=== PATIENT | male | born 1975 | race Caucasian/White ===

== ENCOUNTER 2022-01-23 09:00 | Emergency (ER) | payer BC ==
--- NOTE | 2022-01-23 10:39 | RAD REPORT ---
EXAM DESCRIPTION: RAD - Foot Right 3 View - 01/23/2022 10:32 am CLINICAL HISTORY: SWELLING COMPARISON: No comparisons FINDINGS: Soft tissue swelling affects the great toe. No fracture or foreign body. Small calcaneal s purs. No radiographic evidence of osteomyelitis.
[2022-01-23 10:53] LABS: Absolute Lymphocytes (CBC) 1.7 K/uL (0.7-4.9); Hematocrit 51.5 % (39.6-49.0); Lymphocytes % 13.8 % (15.3-44.8); MCV 93.3 fL (80-100); MPV 7.1 fL (7.6-11.3); RBC Red Blood Cell Count 5.52 M/uL (4.33-5.43)
[2022-01-23 11:12] LABS: Albumin 3.9 g/dL (3.4-5.0); Bilirubin Total 1.4 mg/dL (0.2-1.0); Potassium 4.4 mmol/L (3.5-5.1); Protein, Total 8.3 g/dL (6.4-8.2)
--- NOTE | 2022-01-23 11:29 | RAD REPORT ---
EXAM DESCRIPTION: US - Extremity Venous Uni Ltd - 01/23/2022 11:21 am CLINICAL HISTORY: SWELLING Leg swelling and edema. COMPARISON: No comparisons FINDINGS: Right lower extremity venous system was interrogated with Doppler technique. Normal flow, compressibility and augmentation was noted. There is no DVT present. IMPRESSION: No evidence of right lower extremity deep venous thrombosis.
[2022-01-23] MEDS ORDERED: CLINDAMYCIN 900MG/D5W 900 MG/50 ML IVPB IV ONE (12:54)
[2022-01-23] MEDS ORDERED: DOXYCYCLINE 100 MG CAP PO ONE (12:55)
--- NOTE | 2022-01-23 13:03 | EDPHYS ---
Physician Documentation [facility] Name: Diallo Diez Age: 47 yrs Sex: Male : 1975 Arrival Date: 01/23/2022 Time: 09:02 Bed 15 Private MD: Josue Trevino E ED Physician Heath Caballero HPI: 01/23 09:38 This 47 yrs old Male presents to ER via Ambulatory with complaints of Feet Swelling. jmm 09:38 The patient presents with pain, that is acute, swelling. Onset: The symptoms/episode jmm began/occurred gradually, 2 week(s) ago. Modifying factors: The symptoms are alleviated by nothing. the symptoms are aggravated by nothing. Associated signs and symptoms: Pertinent positives: calf tenderness, swelling. This is a 47 year old male with no chronic medical conditions that presents to the ED with complaints of left foot pain which radiates into the left calf. Denies fever, chills. . Historical: - Allergies: 09:35 PENICILLINS; ss - Home Meds: 09:35 None [Active]; ss - PMHx: 09:35 None; ss - PSHx: 09:35 R knee repair; L tibia repair; ss - Immunization history:: Client reports having NOT received the Covid vaccine. - Social history:: Smoking status: Patient reports the use of cigarette tobacco products, smokes two packs cigarettes per day. ROS: 09:38 Constitutional: Negative for fever, chills, and weight loss, Cardiovascular: Negative jmm for chest pain, palpitations, and edema, Respiratory: Negative for shortness of breath, cough, wheezing, and pleuritic chest pain. 09:38 MS/extremity: Positive for pain, swelling. 09:38 All other systems are negative. Exam: 09:38 Constitutional: This is a well developed, well nourished patient who is awake, alert, jmm and in no acute distress. Head/Face: atraumatic. Eyes: EOMI, no conjunctival erythema appreciated ENT: Moist Mucus Membranes Neck: Trachea midline, Supple Chest/axilla: Normal chest wall appearance and motion. Cardiovascular: Regular rate and rhythm. No edema appreciated Respiratory: Normal respirations, no respiratory distress appreciated Abdomen/GI: Non distended Back: Normal ROM 09:38 Musculoskeletal/extremity: edema noted to the left lower extremity, full dorsalis pulse, compartments soft, NVI. 09:38 Skin: erythema and induration noted to the left great toe . 09:38 Neuro: Orientation: is normal, Mentation: is normal, Memory: is normal. 09:38 Psych: Behavior/mood is pleasant, cooperative. Vital Signs: 09:30 Pulse 85; Resp 16; Temp 98.1(TE); Pulse Ox 97% on R/A; Weight 136.08 kg; Height 6 ft. 6 ss in. (198.12 cm); Pain 0/10; 09:36 BP 158 / 97; ss 11:28 BP 158 / 97; Pulse 100; Resp 18; Pulse Ox 97% on R/A; tm3 09:30 Body Mass Index 34.67 (136.08 kg, 198.12 cm) ss MDM: 09:38 Patient medically screened. [facility] 13:01 Data reviewed: vital signs, nurses notes. [facility] 13:01 Counseling: I had a detailed discussion with the patient and/or guardian regarding: the [facility] historical points, exam findings, and any diagnostic results supporting the discharge/admit diagnosis, the need for outpatient follow up, to return to the emergency department if symptoms worsen or persist or if there are any questions or concerns that arise at home. ED course: Patient is alert and non toxic in appearance in the ED. Patient advised to follow up with pcp and otherwise given strict return precautions. patient understood and agrees with the plan of care. . 01/23 09:59 Order name: CBC with Diff; Complete Time: 10:54 [facility] 01/23 09:59 Order name: CMP; Complete Time: 11:14 [facility] 01/23 09:59 Order name: Lipase; Complete Time: 11:14 [facility] 01/23 09:59 Order name: Lactate; Complete Time: 11:38 [facility] 01/23 09:59 Order name: Blood Culture Adult (2) [facility] 01/23 10:00 Order name: US Extremity Venous Unilateral Ltd; Complete Time: 11:30 [facility] 01/23 09:59 Order name: IV Saline Lock; Complete Time: 11:05 [facility] 01/23 09:59 Order name: Labs collected and sent; Complete Time: 11:05 [facility] 01/23 10:00 Order name: Foot Right 3 View XRAY; Complete Time: 10:51 [facility] Administered Medications: 12:54 Drug: Clindamycin 900 mg Route: IVPB; Infused Over: 30 mins; Site: right antecubital; hb 12:54 Drug: Doxycycline 100 mg Route: PO; hb Disposition Summary: 01/23/22 13:03 Discharge Ordered Location: Home [facility] Condition: Stable [facility] Diagnosis - Cellulitis of the Left Lower Extremity jm Followup: jmm - With: Private Physician - When: 2 - 3 days - Reason: Recheck today's complaints, Continuance of care, Re-evaluation by your physician Followup: marianelam - With: Mamadou Millan DPM - When: 2 - 3 days - Reason: Recheck today's complaints, Continuance of care, Re-evaluation by your physician Discharge Instructions: - Discharge Summary Sheet [facility] - Cellulitis, Adult [facility] Forms: - Medication Reconciliation Form [facility] - Thank You Letter [facility] - Antibiotic Education [facility] - Prescription Opioid Use [facility] Prescriptions: - Clindamycin HCl 300 mg Oral Capsule - take 1 capsule by ORAL route every 6 hours for 10 days; 40 capsule; Refills: 0, [facility] Product Selection Permitted - Doxycycline Hyclate 100 mg Oral Tablet - take 1 tablet by ORAL route every 12 hours; 20 tablet; Refills: 0, Product [facility] Selection Permitted Signatures: Dispatcher [employer] Heath Mendoza MD MD cha Mickail, Joel, PA PA jmm Smirch, Shelby, BARBARA RN Sejal Butts RN RN
--- NOTE | 2022-01-23 13:03 | ER ---
Nurse's Notes [facility] Name: Diallo Diez Age: 47 yrs Sex: Male : 1975 Arrival Date: 01/23/2022 Time: 09:02 Bed 15 Private MD: Josue Trevino E Diagnosis: Cellulitis of the Left Lower Extremity Presentation: 01/23 09:30 Chief complaint: Patient states: Wound to bottom of foot that began 2 weeks ago after ss picking at a callus. Redness and swelling that began yesterday. Coronavirus screen: Client denies travel out of the [place] in the last 14 days. Ebola Screen: Patient denies exposure to infectious person. Patient denies travel to an Ebola-affected area in the 21 days before illness onset. Initial Sepsis Screen: Does the patient meet any 2 criteria? No. Patient's initial sepsis screen is negative. Does the patient have a suspected source of infection? No. Patient's initial sepsis screen is negative. Risk Assessment: Do you want to hurt yourself or someone else? Patient reports no desire to harm self or others. Onset of symptoms was January 22, 2022. 09:30 Method Of Arrival: Ambulatory ss 09:30 Acuity: LONNY 3 ss Historical: - Allergies: 09:35 PENICILLINS; ss - Home Meds: 09:35 None [Active]; ss - PMHx: 09:35 None; ss - PSHx: 09:35 R knee repair; L tibia repair; ss - Immunization history:: Client reports having NOT received the Covid vaccine. - Social history:: Smoking status: Patient reports the use of cigarette tobacco products, smokes two packs cigarettes per day. Screenin:06 Abuse screen: Denies threats or abuse. Denies injuries from another. Nutritional hb screening: No deficits noted. Tuberculosis screening: No symptoms or risk factors identified. Fall Risk None identified. Assessment: 12:05 General: Appears in no apparent distress. Behavior is calm, cooperative. Neuro: Level hb of Consciousness is awake, alert, obeys commands, Oriented to person, place, time, situation. Cardiovascular: Patient's skin is warm and dry. Respiratory: Respiratory effort is even, unlabored, Respiratory pattern is regular, symmetrical. GI: No signs and/or symptoms were reported involving the gastrointestinal system. : No signs and/or symptoms were reported regarding the genitourinary system. EENT: No signs and/or symptoms were reported regarding the EENT system. Derm: Parent/caregiver reports the patient having left foot abscess. Musculoskeletal: No signs and/or symptoms reported regarding the musculoskeletal system. Vital Signs: 09:30 Pulse 85; Resp 16; Temp 98.1(TE); Pulse Ox 97% on R/A; Weight 136.08 kg; Height 6 ft. 6 ss in. (198.12 cm); Pain 0/10; 09:36 BP 158 / 97; ss 11:28 BP 158 / 97; Pulse 100; Resp 18; Pulse Ox 97% on R/A; tm3 09:30 Body Mass Index 34.67 (136.08 kg, 198.12 cm) ss ED Course: 09:02 Patient arrived in ED. mr 09:02 Josue Trevino MD is Private Physician. mr 09:06 [facility] jmm 09:06 Heath Caballero MD is Attending Physician. jmm 09:35 Triage completed. ss 09:35 Arm band placed on right wrist. ss 10:34 Foot Right 3 View XRAY In Process Unspecified. EDMS 10:38 Inserted saline lock: 20 gauge in right antecubital area, using aseptic technique. tm3 10:38 Initial lab(s) drawn, by nj, sent to lab. tm3 10:55 First set of blood cultures drawn by me. tm3 11:00 Second set of blood cultures drawn by me. Inserted saline lock: 20 gauge in left dh3 forearm, using aseptic technique. Blood collected. 11:23 US Extremity Venous Unilateral Ltd In Process Unspecified. EDMS 12:04 Sejal Butts, RN is Primary Nurse. hb 12:06 Patient has correct armband on for positive identification. hb 13:03 Mamadou Millan DPM is Referral Physician. jmm 13:29 No provider procedures requiring assistance completed. IV discontinued, intact, hb bleeding controlled, No redness/swelling at site. Administered Medications: 12:54 Drug: Clindamycin 900 mg Route: IVPB; Infused Over: 30 mins; Site: right antecubital; hb 12:54 Drug: Doxycycline 100 mg Route: PO; hb Medication: 12:06 VIS not applicable for this client. hb Outcome: 13:03 Discharge ordered by MD. waite 13:29 Discharged to home ambulatory, with significant other. 13:29 Condition: stable 13:29 Discharge instructions given to patient, significant other, Instructed on discharge instructions, follow up and referral plans. medication usage, wound care, Demonstrated understanding of instructions, follow-up care, medications, wound care, Prescriptions given X 2. 13:30 Patient left the ED. Signatures: Dispatcher [employer] EDMS Daljit Barker tm3 Wil Morton PA PA jmm Rivera, Mary mr Charity Joseph, RN RN Sejal Alonzo RN RN Jv, Marce 3
[2022-01-23 14:06] VITALS: TEMP 98.1; O2SAT 97
[2022-01-23 14:08] VITALS: BP 158/97
== END 2022-01-23 13:30 | disposition home or self-care (01) ==
LOC: ER 09:00
DX: L03.116 Cellulitis of left lower limb (principal); F17.210 Nicotine dependence, cigarettes, uncomplicated; Z88.0 Allergy status to penicillin
CPT/HCPCS: 36415; 80053; 83605; 83690; 85025; 87040; 93971; 96374; 99284

== ENCOUNTER 2022-02-13 16:34 | Inpatient (IN) | payer BC ==
[2022-02-13 16:45] VITALS: BMI 34.7
[2022-02-13] MEDS ORDERED: ONDANSETRON 4 MG/2 ML VIAL IV PRN (17:15)
[2022-02-13] MEDS ORDERED: ACETAMINOPHEN 500 MG TAB PO PRN (17:15)
[2022-02-13] MEDS ORDERED: HYDROCODONE/APAP 5/325 MG TAB PO PRN (18:06)
[2022-02-13] MEDS ORDERED: NICOTINE 21 MG/PAT TD PRN (18:06)
--- NOTE | 2022-02-13 18:19 | P.HP ---
Certification for Inpatient Patient admitted to: Inpatient With expected LOS: >2 Midnights Patient will require the following post-hospital care: None Practitioner: I am a practitioner with admitting privileges, knowledge of patient current condition, hospital course, and medical plan of care. Services: Services provided to patient in accordance with Admission requirements found in Title 42 Section 412.3 of the Code of Federal Regulations Patient History Date of Service: 02/13/22 Reason for admission: Osteomyelitis History of Present Illness: 47-year-old male with no significant past medical history presented to outside hospital for complaints of right toe infection, he was seen here in the hospital for similar complaint recently and had completed 10-day course of clindamycin/doxycycline which did seem to help but about 2 days after completing the course antibiotics the erythema and swelling returned. X-ray performed of his right foot showed comminuted fracture of the right distal phalanx with superimposed swelling concerning for infection/osteomyelitis no slightly elevated white blood cell count and glucose level. Patient not a known diabetic he was sent from outside hospital to our facility for further management of suspected osteomyelitis of his right great toe. He was given IV Vanc and PO bactrim at [facility]. 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 - Social History Smoking Status: Heavy Tobacco smoker (>10 cigarettes/day) Counseled patient to stop smoking for: less than 10 minutes Smoking therapy provided: Yes Alcohol use: Yes CD- Drugs: No Caffeine use: Yes Place of Residence: Home Review of Systems 10-point ROS is otherwise unremarkable Musculoskeletal: Foot Pain Integumentary: Rash, As per HPI Physical Examination - Vital Signs Temperature: 97.8 F Blood Pressure: 165/96 Pulse: 82 Respirations: 20 Pulse Ox (%): 96 - Physical Exam General: Alert, In no apparent distress, Oriented x3 HEENT: Atraumatic, PERRLA, Mucous membr. moist/pink, EOMI, Sclerae nonicteric Neck: Supple, 2+ carotid pulse no bruit, No LAD, Without JVD or thyroid abnormality Respiratory: Clear to auscultation bilaterally, Normal air movement Cardiovascular: Regular rate/rhythm, Normal S1 S2 Capillary refill: <2 Seconds Gastrointestinal: Normal bowel sounds, No tenderness Musculoskeletal: No tenderness Integumentary: Tenderness/swelling, Erythema, Warmth Neurological: Normal speech, Normal strength at 5/5 x4 extr, Normal tone, Normal affect Assessment and Plan - Plan Assessment: Osteomyelitis/cellulitis right great toe Hyperglycemia Plan: Osteomyelitis/cellulitis right great toe: Continue broad spectrum abx Vanc/cefepime. Surgery and ID consulted. 06/15 SIRS criteria WBC >12. Hyperglycemia: A1c in the morning, not a known diabetic. SSI if glucose is elevated persistently. DVT PPX: Lovenox Code status:Full code Discharge Plan: Home Plan to discharge in: Greater than 2 days - Advance Directives Does patient have a Living Will: No Does patient have a Durable POA for Healthcare: No - Code Status/Comfort Care Code Status Assessed: Yes (Full code) Critical Care: No Time Spent Managing Pts Care (In Minutes): 70
[2022-02-13] MEDS: INSULIN -REGULAR HUMAN 50 UNIT/0.5 ML ML SQ SCH (19:34)
[2022-02-13] MEDS ORDERED: VANCOMYCIN 1 GM in NA CHLORIDE 0.9% 250 ML IVPB ONE (20:00)
[2022-02-13] MEDS: CEFEPIME 1 GM in NA CHLORIDE 0.9% 100 ML IV SCH (21:22)
--- NOTE | 2022-02-14 00:28 | RAD REPORT ---
EXAM DESCRIPTION: US - Lower Extremity Artery Uni Ltd - 02/14/2022 12:07 am CLINICAL HISTORY: Leg pain COMPARISON: None FINDINGS: The right common femoral, superficial femoral and popliteal arteries demonstrate triphasic waveforms The right posterior tibial and dorsalis pedis arteries demonstrate monophasic waveforms Grayscale, color and spectral analysis performed on all vessels IMPRESSION: Mild distal lower extremity arterial disease
--- NOTE | 2022-02-14 00:29 | RAD REPORT ---
EXAM DESCRIPTION: USExtremity Venous Uni Ltd02/14/2022 12:07 am CLINICAL HISTORY: Right leg pain COMPARISON: January 2022 FINDINGS: Right common femoral, superficial femoral, popliteal and right posterior tibial veins are compressible and demonstrate augmentation. Doppler demonstrates good flow. Grayscale, color and spectral analysis performed on all vessels IMPRESSION: No evidence of deep venous thrombosis involving the right lower extremity.
[2022-02-14 05:54] LABS: Absolute Lymphocytes (CBC) 1.7 K/uL (0.7-4.9); Hematocrit 46.8 % (39.6-49.0); MPV 7.5 fL (7.6-11.3); RBC Red Blood Cell Count 5.03 M/uL (4.33-5.43)
[2022-02-14 06:08] LABS: Albumin 2.9 g/dL (3.4-5.0); Magnesium 2.1 mg/dL (1.8-2.4); Potassium 3.7 mmol/L (3.5-5.1); Protein, Total 6.4 g/dL (6.4-8.2)
[2022-02-14] MEDS: INSULIN -REGULAR HUMAN 50 UNIT/0.5 ML ML SQ SCH ×4 (07:30→21:00)
[2022-02-14] MEDS ORDERED: POTASSIUM CL SA 10 MEQ TAB PO ONE (09:00)
[2022-02-14] MEDS ORDERED: VANCOMYCIN 1 GM in NA CHLORIDE 0.9% 250 ML IVPB SCH (09:00)
[2022-02-14] MEDS: ENOXAPARIN 40 MG/0.4 ML SQ SCH (09:03)
[2022-02-14] MEDS: CEFEPIME 1 GM in NA CHLORIDE 0.9% 100 ML IV SCH ×2 (09:03→20:24)
[2022-02-14] MEDS: VANCOMYCIN 2 GM in NA CHLORIDE 0.9% 500 ML IVPB SCH ×2 (09:03→20:24)
--- NOTE | 2022-02-14 15:54 | CON ---
History Of Present Illness: This is a 47-year-old male, I was consulted for a right foot infection, especially involving the big toe. Patient had a callus and was treated with the oral antibiotic, cli ndamycin and doxycycline. Patient's treatment finished of 10 days and after 2 days he started develo ping swelling and redness to the foot area. Patient denies any diabetes mellitus, but has a strong f amily history of diabetes mellitus. He also smokes 2 pack per day for more than 30 years. Patient c urrently being treated with vancomycin and cefepime. Blood cultures are pending. X-ray from the emergency room showed patient has osteomyelitis of the right big toe. Past Medical History: Right knee arthroscopy and left tibial screws and plates after a skating accid ent. Social History: Tobacco positive of 2 pack per day for 30 years. Alcohol social. Family History: Noncontributory. Medication: Vancomycin and cefepime. See MAR for other medications. Allergies: PENICILLIN CAUSES RASH. Review of Systems: 10-point review was performed. Physical Examination: General: This is a 47-year-old male, lying in bed, not in any acute cardiopulmonary distress. Vital Signs: Temperature 98, pulse 78, respiration 18, blood pressure 169/84. HEENT: Unremarkable. Neck: Supple. Lungs: Clear to auscultation. Heart: S1, S2. Regular. Abdomen: Soft, nontender. Bowel sounds present. Extremities: Right foot big toe osteomyelitis with callus formation and cellulitis. Outpatient anti biotic failure. We will recommend to apply Betadine to the foot wound and keep leg elevated when possible. Continue IV antibiotic for 6 weeks with vancomycin and cefepime. Consider getting PICC line as x-ray is alrea dy showing osteomyelitis. We will hold off on MRI. Plan, off-loading shoes will be recommended for this patient for next 6 weeks. We will follow patient as needed. Thank you, Dr. Lamb, for consult. ARNOL/JURGEN Voice ID: [id number] Report ID: [id number]
--- NOTE | 2022-02-14 15:58 | P.CNS ---
Date of Consult: 02/14/22 PC: This 47-year-old male was seen at another facility where a diagnosis of osteomyelitis of his right great toe was made. He was transferred to our facility. HPC: Patient apparently was seen a few weeks ago. Had a fracture of the great toe. He had been discharged on some antibiotics. He presents now after having pulled off a scabbed area on the bottom, with purulent discharge. And the diagnosis of osteomyelitis. PSHx: Negative PMHx: Diabetes Social Hx: Smokes cigarettes, allergic to penicillin Sys R: No specific complaints, states he is otherwise in relatively good health O/E: Awake alert vital signs are stable HEENT: Not jaundiced Chest: Air entry equal bilaterally Abd: Negative [place]: Right great toe shows area with break in the skin draining some purulent material. Erythema from the distal portion of the toe to almost the metatarsal phalangeal joint. Data: Apparently x-rays demonstrate osteomyelitis on outside read Impression: Osteomyelitis of the right great toe Plan: Patient is not septic, there is minimal drainage out through the incision. He is been seen by infectious disease. The plan is to place a PICC line, and keep him on antibiotics for 4 to 6 weeks. He does not require surgical intervention at this time.
[2022-02-14] MEDS ORDERED: HYDRALAZINE HCL 20 MG/ML VIAL IV PRN (16:01)
--- NOTE | 2022-02-14 16:19 | P.PN ---
Date of Service: 02/14/22 Subjective: No acute events overnight Swelling has decreased Feels redness is slightly brighter today No pain, no fever ROS: 10 point ROS as noted above, otherwise negative Physical exam GEN: Alert, oriented, NAD HEENT: Normal conjunctiva, sclera anicteric CV: Regular rate and rhythm, no edema Pulm: Nonlabored respirations on room air ABD: Soft, nontender, nondistended Integumentary: R 1st toe - erythema, swelling, slight purulent drainage Neuro: Normal speech, normal affect Problem List Osteomyelitis/cellulitis right great toe Hyperglycemia Osteomyelitis/cellulitis right great toe: not septic, doing ok slight purulent drainage at this time culture of drainage and blood cultures obtained at [place], f/u cultures tomorrow continue broad spectrum abx Vanc/cefepime. Surgery and ID consulted - no MRI needed; x-ray with findings concerning for osteomyelitis done at [place] PICC ordered, will need 6 weeks antibiotics Hyperglycemia: A1c: 6.0 Code: full Dispo: home, 1-2 days f/u cultures, PICC line placement Time Spent Managing Pts Care (In Minutes): 35
[2022-02-14] MEDS: lisinopriL 10 MG TAB PO SCH (17:22)
[2022-02-15 06:30] LABS: Potassium 3.8 mmol/L (3.5-5.1)
[2022-02-15] MEDS: INSULIN -REGULAR HUMAN 50 UNIT/0.5 ML ML SQ SCH ×4 (07:30→21:00)
[2022-02-15] MEDS ORDERED: POTASSIUM CL SA 10 MEQ TAB PO ONE (09:00)
[2022-02-15] MEDS: CEFEPIME 1 GM in NA CHLORIDE 0.9% 100 ML IV SCH (09:27)
[2022-02-15] MEDS: ENOXAPARIN 40 MG/0.4 ML SQ SCH (09:27)
[2022-02-15] MEDS: lisinopriL 10 MG TAB PO SCH (09:28)
[2022-02-15] MEDS: VANCOMYCIN 2 GM in NA CHLORIDE 0.9% 500 ML IVPB SCH ×2 (12:28→22:16)
--- NOTE | 2022-02-15 14:38 | P.PN ---
Subjective Date of Service: 02/15/22 Chief Complaint: Osteomyelitis No new complaint. No fever. He states that his pain is well controlled. Physical Examination - Vital Signs Temperature: 97.0 F Blood Pressure: 150/95 Pulse: 73 Respirations: 14 Pulse Ox (%): 93 - Studies Laboratory Data (last 24 hrs) 02/15/22 05:24: Sodium 139, Potassium 3.8, BUN 9, Creatinine 0.69, Glucose 130 H Assessment And Plan - Plan Physical exam GEN: Alert, oriented, NAD HEENT: Normal conjunctiva, sclera anicteric CV: Regular rate and rhythm, no edema Pulm: Nonlabored respirations on room air ABD: Soft, nontender, nondistended Integumentary: Right 1st toe - erythematous, swollen, no discharge. Neuro: No focal motor deficit Problem List Osteomyelitis/cellulitis right great toe Hyperglycemia Strep bacteremia Plan: Blood culture is growing beta-hemolytic strep. Case discussed with infectious disease-Dr. Donald. Discontinue cefepime and continue vancomycin for now. culture of drainage and blood cultures obtained at [place], f/u cultures. Surgery and ID: No need for amputation for now. Repeat blood culture PICC once blood cultures negative. Patient will need 6 weeks antibiotics Hyperglycemia: A1c: 6.0 Nondiabetic. Code: full Dispo: Home with IV antibiotics.
--- NOTE | 2022-02-15 14:43 | PN ---
Subjective: The patient is lying in bed, not in any acute distress. Blood cultures came back positi ve for gram-positive cocci. We will recommend to stop cefepime. Objective: Vital Signs: Stable. Lungs: Clear to auscultation. Heart: S1, S2. Regular. Abdomen: Soft, nontender. Bowel sounds present. Extremity: Right foot swelling and erythematous changes have decreased. Right big toe wound noted. Laboratory Data: Reviewed. Assessment And Plan: Bacteremia secondary to gram-positive cocci. Repeat blood cultures. Continue the patient's vancomycin total of 6 weeks. Discontinue cefepime. Also monitor the patient kidney an d liver function and platelets while the patient is on antibiotic. Monitor for signs of infection wi th WBC and fever trends. We will follow the patient closely. NF/MODL Voice ID: [id number] Report ID: [id number]
[2022-02-16 06:56] LABS: Potassium 3.8 mmol/L (3.5-5.1)
[2022-02-16] MEDS: INSULIN -REGULAR HUMAN 50 UNIT/0.5 ML ML SQ SCH ×4 (07:30→21:00)
[2022-02-16] MEDS: lisinopriL 10 MG TAB PO SCH (09:04)
[2022-02-16] MEDS: ENOXAPARIN 40 MG/0.4 ML SQ SCH (09:04)
[2022-02-16] MEDS: VANCOMYCIN 2 GM in NA CHLORIDE 0.9% 500 ML IVPB SCH ×2 (09:05→22:06)
[2022-02-16] MEDS ORDERED: POTASSIUM CL SA 10 MEQ TAB PO ONE (12:00)
--- NOTE | 2022-02-16 12:19 | P.PN ---
Subjective Date of Service: 02/16/22 Chief Complaint: Osteomyelitis No new complaint. No fever. No major changes from yesterday. Physical Examination - Vital Signs Temperature: 97.3 F Blood Pressure: 169/99 Pulse: 70 Respirations: 16 Pulse Ox (%): 96 - Studies Laboratory Data (last 24 hrs) 02/16/22 06:33: Sodium 141, Potassium 3.8, BUN 10, Creatinine 0.67, Glucose 126 H Microbiology Data (last 24 hrs): 02/13/22 17:37 Blood - Blood Blood Culture Gram Stain - Final Assessment And Plan - Plan Physical exam GEN: Alert, oriented, NAD HEENT: Normal conjunctiva, sclera anicteric CV: Regular rate and rhythm, no edema Pulm: Nonlabored respirations on room air ABD: Soft, nontender, nondistended Integumentary: Right 1st toe - erythematous, swollen, no discharge. Neuro: No focal motor deficit Problem List Osteomyelitis/cellulitis right great toe Hyperglycemia Strep bacteremia Plan: Blood culture is growing strep dysgalactiae which is likely a skin contaminant. Case discussed with infectious disease-Dr. Donald. Place PICC line for outpatient IV vancomycin culture of drainage and blood cultures obtained at [place], f/u cultures. Surgery and ID: No need for amputation for now. Patient slated for 6 weeks of IV antibiotics. Hyperglycemia: A1c: 6.0 Nondiabetic. Code: full Dispo: Home with IV antibiotics.
--- NOTE | 2022-02-16 13:43 | RAD REPORT ---
EXAM DESCRIPTION: RAD - Chest Single View - 02/16/2022 1:38 pm CLINICAL HISTORY: PICC placement verification COMPARISON: No comparisons FINDINGS: Portable chest was obtained following placement of a right upper extremity PICC line. The catheter tip projects over the upper SVC..
--- NOTE | 2022-02-16 20:22 | PN ---
Subjective: The patient lying in bed, not in any acute event. Denies any headache, nausea, vomiting , chest pain, abdominal pain, constipation, or diarrhea. Objective: Vital Signs: Temperature 97, pulse 70, respirations 16, blood pressure 169/99. Lungs: Clear to auscultation. Heart: S1, S2. Regular. Abdomen: Soft, nontender. Bowel sounds present. Extremities: Big toe wound and erythematous changes noted. Patient is currently on vancomycin. Laboratory Data: Blood cultures are growing on 02/13, a strep, most likely contaminant. Repeat bloo d cultures are negative. Assessment And Plan: Osteomyelitis of right big toe. Recommend to get a front off-loading shoes, PI CC line, and IV antibiotic for 6 weeks. If possible, to get hyperbaric treatment at [facility]. Repeat MRI after finishing 6 weeks of antibiotics. Follow the patient with WBC and fever trend. NF/MODL Voice ID: [id number] Report ID: [id number]
[2022-02-17 06:44] LABS: Potassium 3.8 mmol/L (3.5-5.1)
[2022-02-17] MEDS: INSULIN -REGULAR HUMAN 50 UNIT/0.5 ML ML SQ SCH ×2 (07:30→11:30)
[2022-02-17] MEDS: lisinopriL 10 MG TAB PO SCH (08:17)
[2022-02-17] MEDS: ENOXAPARIN 40 MG/0.4 ML SQ SCH (08:17)
[2022-02-17] MEDS: VANCOMYCIN 2 GM in NA CHLORIDE 0.9% 500 ML IVPB SCH (09:57)
[2022-02-17 10:11] VITALS: O2SAT 92
[2022-02-17 12:02] VITALS: BP 150/95; TEMP 97.6
--- NOTE | 2022-02-17 13:39 | P.DS ---
Admission Date: 02/13/22 Discharge Date: 02/17/22 Disposition: ROUTINE DISCHARGE Discharge Condition: FAIR Reason for Admission: Osteomyelitis Brief History of Present Illness: 47-year-old man with no significant past medical history presented to outside hospital for complaints of right toe infection, he was seen here in the hospital for similar complaint recently and completed 10-day course of clindamycin/doxycycline which did seem to help but about 2 days after completing the course antibiotics the erythema and swelling returned. X-ray performed of his right foot showed comminuted fracture of the right distal phalanx with sup erimposed swelling concerning for infection/osteomyelitis no slightly elevated white blood cell count and glucose level. Patient not a known diabetic he was sent from outside hospital to our facility for further management of suspected osteomyelitis of his right great toe. 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 Hospital Course: Diagnosis Osteomyelitis/cellulitis right great toe Hyperglycemia Strep bacteremia Patient admitted to the medical floor and started on broad-spectrum antibiotics- vancomycin and cefepime. Patient seen in consultation by infectious disease Blood culture grew strep dysgalactiae which is likely a skin contaminant. Repeat blood culture yielded no growth. Case discussed with infectious disease- Dr. Donald. Cefepime was discontinued and patient was treated with vancomycin. Also seen in consultation by general surgery who recommended no need for amputation and only medical management for now. Infectious disease recommended 6 weeks of antibiotics. PICC line was placed for outpatient IV vancomycin. Also added Levaquin to cover for gram-negative's. Patient will follow with general surgery and his PCP. His hemoglobin A1c was 6.0 suggesting patient is not diabetic. Vital Signs/Physical Exam: Temp Pulse Resp BP Pulse Ox 97.6 F 73 18 150/95 H 97 02/17/22 12:00 02/17/22 12:00 02/17/22 12:00 02/17/22 12:00 02/17/22 12:00 General: Alert, In no apparent distress, Oriented x3 HEENT: Mucous membr. moist/pink Neck: JVD not distended Respiratory: Normal air movement Cardiovascular: Regular rate/rhythm, Normal S1 S2 Gastrointestinal: Soft and benign, Non-distended Musculoskeletal: Erythema (Right big toe) Neurological: Normal strength at 5/5 x4 extr Laboratory Data at Discharge: WBC 9.80 K/uL (4.3-10.9) 02/14/22 05:34 Hgb 16.0 g/dL (13.6-17.9) 02/14/22 05:34 Hct 46.8 % (39.6-49.0) 02/14/22 05:34 Plt Count 213 K/uL (152-406) 02/14/22 05:34 Sodium 140 mmol/L (136-145) 02/17/22 06:20 Potassium 3.8 mmol/L (3.5-5.1) 02/17/22 06:20 BUN 10 mg/dL (7-18) 02/17/22 06:20 Creatinine 0.79 mg/dL (0.55-1.3) 02/17/22 06:20 Glucose 141 mg/dL (74-106) H 02/17/22 06:20 Magnesium 2.1 mg/dL (1.8-2.4) 02/14/22 05:34 Total Bilirubin 1.0 mg/dL (0.2-1.0) 02/14/22 05:34 AST 8 U/L (15-37) L 02/14/22 05:34 ALT 16 U/L (12-78) 02/14/22 05:34 Alkaline Phosphatase 68 U/L (45-117) 02/14/22 05:34 Home Medications: Amlodipine [Norvasc*] 10 mg PO DAILY #30 tab 02/17/22 Codeine/APAP [Tylenol W/Codeine #3 tab] 1 tab PO Q6HP PRN #20 tab 02/17/22 Lactobacillus Acidophilus [Acidophilus Probiotic] 1 each PO TID #90 cap 02/17/22 levoFLOXacin [Levaquin] 750 mg PO DAILY #14 tab 02/17/22 lisinopriL [Prinivil*] 10 mg PO DAILY #30 tab 02/17/22 New Medications: Codeine/APAP [Tylenol W/Codeine #3 tab] 1 tab PO Q6HP PRN #20 tab PRN Reason: Pain Lactobacillus Acidophilus [Acidophilus Probiotic] 1 each PO TID #90 cap levoFLOXacin [Levaquin] 750 mg PO DAILY #14 tab Amlodipine [Norvasc*] 10 mg PO DAILY #30 tab lisinopriL [Prinivil*] 10 mg PO DAILY #30 tab Diet: AHA Activity: Ad ferny Followup: Josue Trevino MD [ACTIVE - CAN ADMIT] - 1-2 Weeks (Within 2 weeks.) Tenzin Burgess MD [ACTIVE - CAN ADMIT] - (Within 2-4 weeks) Time spent managing pt's care (in minutes): 35
--- NOTE | 2022-02-21 11:42 | PN ---
Subjective: Patient lying in bed. by the bedside. The patient is being discharged. Denies an y headache, nausea, vomiting, or problems with antibiotic. Objective: Vital Signs: Reviewed. Lungs: Clear to auscultation. Heart: S1, S2. Regular. Abdomen: Soft, nontender. Bowel sounds present. Extremities: Right foot wound noted. Cellulitis has improved. Assessment And Plan: Right foot diabetic foot ulcer with cellulitis and osteomyelitis. Recommend 6 weeks of antibiotic and hyperbaric treatment. Follow up in 1 week's time to my clinic in [place]. We will follow the patient closely. NF/MODL Voice ID: [id number] Report ID: [id number]
== END 2022-02-17 14:30 | disposition home health service (06) | DRG 540 ==
LOC: 2ND 16:34
PROVIDERS: ADMIT Hospitalist; ATTEND Internal Medicine
PROC: 02HV33Z Insertion of Infusion Device into Superior Vena Cava, Percutaneous Approach (ICD-10-PCS; principal; 2022-02-16)
DX: M86.8X8 Other osteomyelitis, other site (principal); R78.81 Bacteremia; L03.031 Cellulitis of right toe; L97.519 Non-pressure chronic ulcer of other part of right foot with unspecified severity; F17.210 Nicotine dependence, cigarettes, uncomplicated; R73.9 Hyperglycemia, unspecified; B95.5 Unspecified streptococcus as the cause of diseases classified elsewhere; Z88.0 Allergy status to penicillin; Z79.899 Other long term (current) drug therapy
CPT/HCPCS: 36415; 36569; 71045; 80048; 80053; 80202; 82947; 83036; 83735; 85025; 87040; 87070; 87077; 87186; 87205; 93926; 93971; J0692; J1650; J1815; J3370; J7040; J7050

== ENCOUNTER 2022-06-10 09:44 | Day surgery (SDC) | payer BC ==
[2022-06-10] MEDS ORDERED: NA CHLORIDE 0.9% 1,000 ML ONE (09:58)
[2022-06-10] MEDS ORDERED: EPINEPHRINE/PF 1 MG/ML AMP ONE (10:36)
[2022-06-10] MEDS ORDERED: propofoL 200 MG/20 ML VIAL IV ONE ×3 (10:52→13:12)
[2022-06-10] MEDS ORDERED: LIDOCAINE 2% MPF 5 ML VIAL ONE (10:52)
[2022-06-10] MEDS ORDERED: FENTANYL CITR 100 MCG/2 ML ONE (10:52)
[2022-06-10] MEDS ORDERED: MIDAZOLAM HCL 2 MG/2 ML INJ ONE (10:52)
[2022-06-10] MEDS ORDERED: BUPIVACAINE 0.5% PF 10 ML VIAL ONE (11:46)
--- NOTE | 2022-06-10 13:03 | P.HP ---
Date of Service: 06/10/22 PC: This 47-year-old male presents for amputation of the second toe of his right foot. HPC: Patient has had pain and tenderness in his right toe for the last few weeks. He is diabetic and did not notice that his toe was causing him problems due to his peripheral vascular disease. Essentially the toe [which apparently was a hammertoe] is red erythematous and has been draining fluid. PSHx: Previous orthopedic procedures PMHx: Diabetes Social Hx: Allergic to penicillin Sys R: No cough, wheeze, shortness of breath. No chest pain or palpitations. Is not having much pain from this, but is concerned about the drainage. O/E: Awake alert vital signs are stable HEENT: Within normal limits Chest: Air entry equal bilaterally Abd: Negative [place]: The right great toe shows an open area at the first interphalangeal joint. The rest of the toe has partial skin loss. There are no tendons intact. Data: Doppler studies negative, arterial studies show good blood flow peripherally Impression: This patient has erosion into the joint of the second toe left foot. There are no tendons remaining. He will have functionally a problem if this heals normally. Plan: I will taken the operating room for amputation of the second toe of his right foot. The risks of this procedure have been discussed. The possibility of bleeding, infection, injury to blood vessels and surrounding structures were outlined. The fact that he may have further problems secondary to mechanical complications from the amputation of his second toe were explained. He understands and wants us to proceed.
[2022-06-10] MEDS ORDERED: KETOROLAC 30 MG/ML INJ ONE (13:39)
[2022-06-10 14:19] VITALS: BP 153/69; TEMP 97.7; O2SAT 96
--- NOTE | 2022-06-10 14:25 | P.OP ---
Preoperative diagnosis: Gangrene of the second toe right foot Postoperative diagnosis: The same Primary procedure: Amputation of distal portion second phalanx right foot Anesthesia: MAC Specimen: Sent for histopathology Operative Technique: The patient brought the operating room and placed supine on the table. After the induction of adequate sedation by anesthesia, attention was turned towards the right foot. This was prepped with a Betadine solution, draped in usual aseptic manner. Attention was now turned towards the second toe. A [place] drain was placed around the first toe to abductus we could carefully inspect the second toe. It was found to be an open wound just at the proximal interphalangeal joint. On opening this up there was essentially no [id number] just the bone being held in place by distal skin flap inferiorly. This is a skin flap however had good vasculature to it. We were able to dissect this inferior part of the skin off of the distal portion of the remaining calyces. This the bone was then amputated and sent for histopathology. This inferior flap was now inspected. We found the flexor tendons, were able to trim noticed that he retracted well back. The flap was essentially viable with good capillary flow distally. The attention was turned towards the bone of the proximal phalanx. This was trimmed and rasped down so we had a smooth surface. This flap was now brought up and ar ound the toe and sutured to the dorsal surface to close the exposed bone ends. We had enough padding there so I think that this will give him a much better functional result. 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 The rest of the wound was inspected. Adequate hemostasis had been ensured. A sterile dressing was applied. At the end of procedure he was stable was sent to the recovery room. Needle sponge instrument count were correct. No drains were placed. Complications: None Transferred to: Recovery Room Condition: Good
== END 2022-06-10 14:52 | disposition home or self-care (01) ==
LOC: OR 09:44
PROVIDERS: ATTEND Surgery
PROC: 0Y6R0Z1 Detachment at Right 2nd Toe, High, Open Approach (ICD-10-PCS; principal; 2022-06-10 11:30)
DX: S91.104A Unspecified open wound of right lesser toe(s) without damage to nail, initial encounter (principal); E11.52 Type 2 diabetes mellitus with diabetic peripheral angiopathy with gangrene; I96 Gangrene, not elsewhere classified; E11.9 Type 2 diabetes mellitus without complications; E11.621 Type 2 diabetes mellitus with foot ulcer
CPT/HCPCS: 82947 ×2; 88305; 88311; 28160; J2704 ×3; J2001; J2250; J7030; J0171; J3010

== ENCOUNTER 2022-06-12 17:27 | Emergency (ER) | payer BC ==
--- OUTSIDE RECORDS SUMMARY | 2022-06-12 17:31 | XMS REPORT | Continuity of Care Document ---
:1975 Author Organization [facility] t Address [address] [place] [address] Care Team Providers Name Role Phone Pcp, Patient Does Not Have A Primary Care Physician +[id number] Hunter Durand Attending Clinician HUNTER SILVA Attending Clinician Unavailable Unknown, Attending Attending Clinician Unavailable Doctor Unassigned, [place] Attending Clinician Unavailable Payers Payer Name Policy Type Policy Number Effective Date Expiration Date S ource Problems Condition Condition Condition Status Onset Resolution Last Treating Co mments Source Name Details Category Date Date Treatment Clinician Date No known No known Disease Unive rs active active ity of problems problems [facility] Allergies, Adverse Reactions, Alerts Allergy Allergy Status Severity Reaction(s) Onset Inactive Treating Comm ents Source Name Type Date Date Clinician PENICILL DRUG Active Rash 2021-06 Univers IN INGREDI 07-07 ity of 00:00: [address] Penicill Propensi Active Rash 2021-06 Univer s in ty to 07-07 ity of adverse 00:00: [place] reaction 00 [facility] s Branch NO KNOWN Drug Active Univers ALLERGIE Class ity of S [facility] Social History Social Habit Start Date Stop Date Quantity Comments Source Exposure to 2022-04-27 2022-05-07 Not sure University of SARS-CoV-2 00:00:00 09:08:00 [facility] (event) [place] Tobacco use and 2022-05-07 2022-05-07 Smokeless tobacco Un iversity of exposure 00:00:00 00:00:00 non-user [facility] Sex Ass[birth year] At [birth year] Universit y of 00:00:00 00:00:00 [place] [facility] [place] Smoking Status Start Date Stop Date Source Tobacco smoking consumption [facility] unknown Branch Never smoked tobacco [facility] Medications Ordered Filled Start Stop Current Ordering Indication Dosage Frequency Signature Comments Components Source Medication Medication Date Date Medication? Clinician (SIG) Name Name nebivoloL 5 2021-06 Yes 5mg Take 5 mg U nivers mg tablet 1-26 by mouth ity of 09:20: in the [address] Medical Branch losartan 50 2021-06 Yes 50mg Take 50 mg Univers mg tablet -26 by mouth ity of 09:20: in the [place] [address] morning. Medical Branch nebivoloL 5 2021-06 Yes 5mg Take 5 mg U nivers mg tablet -26 by mouth ity of 09:20: in the [place] [address] morning. Medical Branch losartan 50 2021-06 Yes 50mg Take 50 mg Univers mg tablet 1-26 by mouth ity of 09:20: in the [address] Medical Branch nebivoloL 5 2021-06 Yes 5mg Take 5 mg U nivers mg tablet -26 by mouth ity of 09:20: in the [place] [address] morning. Medical Branch losartan 50 2021-06 Yes 50mg Take 50 mg Univers mg tablet -26 by mouth ity of 09:20: in the [place] [address] morning. Medical Branch nebivoloL 5 2021-06 Yes 5mg Take 5 mg U nivers mg tablet -26 by mouth ity of 09:20: in the [place] [address] morning. Medical Branch losartan 50 2021-06 Yes 50mg Take 50 mg Univers mg tablet -26 by mouth ity of 09:20: in the [place] [address] morning. Medical Branch clindamycin 2021-06- Yes [id number] 450mg Take 3 Univers 150 mg 07-07 [id number] capsules ity of capsule 00:00: 05:59 by mouth [place] 00 :00 in the Medical morning Branch and 3 capsules at noon and 3 capsules in the evening. Do all this for 10 days. doxycycline 2021-06- Yes [id number] 100mg Take 1 Univers hyclate 100 -05-18 [id number] tablet by ity of mg tablet 00:00: 05:59 mouth in [place] 00 :00 the Medical morning Branch and 1 tablet in the evening. Do all this for 10 days. clindamycin 2021-06- Yes [id number] 450mg Take 3 Univers 150 mg 07-07 [id number] capsules ity of capsule 00:00: 05:59 by mouth [place] 00 :00 in the Medical morning Branch and 3 capsules at noon and 3 capsules in the evening. Do all this for 10 days. doxycycline 2021-06- Yes [id number] 100mg Take 1 Univers hyclate 100 07-07 [id number] tablet by ity of mg tablet 00:00: 05:59 mouth in [place] 00 :00 the Medical morning Branch and 1 tablet in the evening. Do all this for 10 days. clindamycin 2021-06- Yes [id number] 450mg Take 3 Univers 150 mg 07-07 [id number] capsules ity of capsule 00:00: 05:59 by mouth [place] 00 :00 in the Medical morning Branch and 3 capsules at noon and 3 capsules in the evening. Do all this for 10 days. doxycycline 2021-06- Yes [id number] 100mg Take 1 Univers hyclate 100 07-07 [id number] tablet by ity of mg tablet 00:00: 05:59 mouth in [place] 00 :00 the Medical morning Branch and 1 tablet in the evening. Do all this for 10 days. clindamycin 2021-06- Yes [id number] 450mg Take 3 Univers 150 mg 07-07 [id number] capsules ity of capsule 00:00: 05:59 by mouth [place] 00 :00 in the Medical morning Branch and 3 capsules at noon and 3 capsules in the evening. Do all this for 10 days. doxycycline 2021-06- Yes [id number] 100mg Take 1 Univers hyclate 100 07-07 [id number] tablet by ity of mg tablet 00:00: 05:59 mouth in [place] 00 :00 the Medical morning Branch and 1 tablet in the evening. Do all this for 10 days. Vital Signs Vital Name Observation Time Observation Value Comments Source Systolic blood 2022-05-07 15:16:00 149 mm[Hg] Univer sity of pressure [facility] Diastolic blood 2022-05-07 15:16:00 93 mm[Hg] Unive rsity of pressure [facility] Heart rate 2022-05-07 15:16:00 68 /min [facility] Body temperature 2022-05-07 15:16:00 36.56 [facility] Body height 2022-05-07 15:16:00 198.1 cm [facility] Body weight 2022-05-07 15:16:00 131.815 kg [facility] BMI 2022-05-07 15:16:00 33.58 kg/m2 [facility] Oxygen saturation in 2022-05-07 15:16:00 100 /min [facility] Arterial blood by [facility] Pulse oximetry Branch Procedures Procedure Date / Time Performed Performing Clinician Sourangus e XR FOOT 3+ VW RIGHT 2022-05-07 15:57:35 Hunter Silva [facility] ASSIGNMENT OF BENEFITS 2022-05-07 15:05:59 Doctor Unassigned, No [facility] Encounters Start End Encounter Admission Attending Care Care Encounter Source Date/Time Date/Time Type Type Clinicians Facility Department ID 2022-05-12 2022-05-12 Telephone [facility] [id number] Univers 00:00:00 00:00:00 [place] [id number] it y of [place] [id number] [facility] [id number] [facility] PRIMARY & [address] Branch SPECIALTY CARE 2022-05-11 2022-05-11 [facility]phone [facility] [id number] Univers 00:00:00 00:00:00 [place] [id number] it y of [place] [id number] [facility] [id number] [facility] PRIMARY & [address] Branch SPECIALTY CARE 2022-05-07 2022-05-[address] [facility] [id number] Univers 09:40:44 23:59:00 [facility] 2022-05-07 2022-05-07 [facility] [id number] [facility] 09:40:44 23:59:00 [facility] [id number] [facility] [id number] Rene as ROXANA?BLEA [id number] [facility] [address] [place] MEDICAL OFFICE BUILDING 2022-05-07 2022-05-07 Urgent Hnuter Silva [facility] [id number] [facility] 09:00:00 10:02:22 Care Unknown, Attending HEALTH [id number] ity [facility] [id number] [place]ene as ROXANA?BLEA [id number] [facility] [address] [place] MEDICAL OFFICE BUILDING 2022-05-07 2022-05-07 Orders Doctor ASHLEY [id number] Univers 00:00:00 00:00:00 Only Unassigned, ALINA [id number] ity of [place] [facility] [id number] Rene as [id number] [place] [address] Branch Results This patient has no known results.
--- NOTE | 2022-06-12 18:36 | EDPHYS ---
Physician Documentation [facility] Name: Diallo Diez Age: 47 yrs Sex: Male : 1975 Arrival Date: 06/12/2022 Time: 17:31 Bed 12 Private MD: ED Physician Heath Caballero HPI: 06/12 18:48 This 47 yrs old Male presents to ER via Ambulatory with complaints of Wound Check. snw 18:48 Patient presents to ED for recheck of: pt had partial amputation of right second toe on snw 06/10/[address] Burgess. He was outside working and his wound dressing became bloody. Pt would like to have it evaluated. I did not personally see the wound prior to today and pt tells me it doesn't appear significantly different. There is a potentially fungal appearing rash to dorsum of foot with a red streak toward the lateral foot.. The affected area is on the right second toe. Progress: The patient reports I did not see original wound. +flap to right, second toe. The patient has experienced similar episodes in the past. pt has an appt with Dr. Burgess on Monday. Historical: - Allergies: 17:44 PENICILLINS; kr3 - Home Meds: 17:44 losartan 50 mg oral tab 1 tab once daily [Active]; nebivolol 5 mg oral tab 1 tab once kr3 daily [Active]; - PMHx: 17:44 Hypertensive disorder; Diabetes mellitus; kr3 - PSHx: 17:44 L tibia repair; R knee repair; kr3 - Immunization history:: Adult Immunizations not up to date. - Social history:: Smoking status: Patient reports the use of cigarette tobacco products, smokes two packs cigarettes per day. Reported history of juuling and/or vaping. ROS: 18:54 Constitutional: Negative for fever, chills, and weight loss, Eyes: Negative for injury, snw pain, redness, and discharge, ENT: Negative for injury, pain, and discharge, Neck: Negative for injury, pain, and swelling, Cardiovascular: Negative for chest pain, palpitations, and edema, Respiratory: Negative for shortness of breath, cough, wheezing, and pleuritic chest pain, Abdomen/GI: Negative for abdominal pain, nausea, vomiting, diarrhea, and constipation, Back: Negative for injury and pain, : Negative for injury, bleeding, discharge, and swelling, MS/Extremity: Negative for injury and deformity, Neuro: Negative for headache, weakness, numbness, tingling, and seizure, Psych: Negative for depression, anxiety, suicide ideation, homicidal ideation, and hallucinations. 18:54 Skin: Positive for right foot wound re-eval. Exam: 18:54 Constitutional: This is a well developed, well nourished patient who is awake, alert, snw and in no acute distress. Neck: Trachea midline, no thyromegaly or masses palpated, and no cervical lymphadenopathy. Supple, full range of motion without nuchal rigidity, or vertebral point tenderness. No Meningismus. Chest/axilla: Normal chest wall appearance and motion. Nontender with no deformity. No lesions are appreciated. Cardiovascular: Regular rate and rhythm with a normal S1 and S2. No gallops, murmurs, or rubs. Normal PMI, no JVD. No pulse deficits. Respiratory: Lungs have equal breath sounds bilaterally, clear to auscultation and percussion. No rales, rhonchi or wheezes noted. No increased work of breathing, no retractions or nasal flaring. Abdomen/GI: Soft, non-tender, with normal bowel sounds. No distension or tympany. No guarding or rebound. No evidence of tenderness throughout. Neuro: Awake and alert, GCS 15, oriented to person, place, time, and situation. Cranial nerves II-XII grossly intact. Motor strength 5/5 in all extremities. Sensory grossly intact. Cerebellar exam normal. Normal gait. 18:54 Skin: Appearance: Color: normal in color, Wound recheck: right second toe with surgical skin flap, pale in color, base of toe with edema and erythema. dorsum of foot with erythematous rash that appears fungal with extension to lateral right foot. Pt cannot say if it looks different, better, or worse. . Vital Signs: 17:40 BP 173 / 90; Pulse 90; Resp 18; Temp 98.8; Pulse Ox 94% on R/A; Weight 134.72 kg; kr3 Height 6 ft. 6 in. (198.12 cm); Pain 0/10; 19:00 BP 168 / 82; Pulse 82; Resp 18; Pulse Ox 96% ; kb3 17:40 Body Mass Index 34.32 (134.72 kg, 198.12 cm) kr3 MDM: 18:01 Patient medically screened. snw 18:40 Data reviewed: vital signs, nurses notes. Data interpreted: Pulse oximetry: on room air snw is 94 %. Interpretation: acceptable. 18:57 Special discussion: Based on the history and exam findings, there is no indication for snw further emergent testing or inpatient evaluation. I discussed with the patient/guardian the need to see the general surgeon for further evaluation of the symptoms. ED course: pt agrees to Bactrim BID until f/u with Dr. Burgess. 400mg Diflucan given in ED.. 06/12 19:04 Order name: Xeroform gauze dressing; Complete Time: 19:06 snw 06/12 19:04 Order name: Petey Wrap; Complete Time: 19:06 snw 06/12 19:04 Order name: Wound dressing: keflex; Complete Time: 19:06 snw Administered Medications: 18:45 Drug: Bactrim (trimethoprim-sulfamethoxazole) (160 mg-800 mg (DS) 1 tablet Route: PO; kb3 19:04 Follow up: Response: No adverse reaction kb3 18:45 Drug: DiFLUcan (fluconazole) 400 mg Route: PO; kb3 19:04 Follow up: Response: No adverse reaction kb3 Disposition Summary: 06/12/22 18:36 Discharge Ordered Location: Home snw Condition: Stable snw Diagnosis - Encounter for wound check of recent partial amputation of right second toe snw Followup: snw - With: Emergency Department - When: As needed - Reason: Worsening of condition Followup: snw - With: Private Physician - When: 2 - 3 days - Reason: Recheck today's complaints, Continuance of care, Re-evaluation by your physician Followup: snw - With: Tenzin Burgess MD - When: 06/15/2022 - Reason: Recheck today's complaints, Re-evaluation by your physician Discharge Instructions: - Discharge Summary Sheet snw - Wound Infection snw - Wound Care, Adult snw Forms: - Medication Reconciliation Form snw - Thank You Letter snw - Antibiotic Education snw - Prescription Opioid Use snw Prescriptions: - Bactrim DS 800-160 mg Oral Tablet - take 1 tablet by ORAL route every 12 hours for 10 days; 20 tablet; Refills: 0, snw Product Selection Permitted Signatures: Rocha, Bridgette, LAC[employer]ER M[employer]ER-C LACQUER MIXER-Csnw Shadia Brown, RN RN kr3 Rufina Ramos, RN RN kb3
--- NOTE | 2022-06-12 18:36 | ER ---
Nurse's Notes [facility] Name: Diallo Diez Age: 47 yrs Sex: Male : 1975 Arrival Date: 06/12/2022 Time: 17:31 Bed 12 Private MD: Diagnosis: Encounter for wound check of recent partial amputation of right second toe Presentation: 06/12 17:40 Chief complaint: Patient states: I had a partial amputation of my Right second toe on kr3 06/10/22, I was up and moving about 3 hours today and noticed there was some blood when I removed the outer bandage. I wanted to come have it looked at to be safe and make sure everything was okay. Coronavirus screen: Vaccine status: Patient reports being unvaccinated. Client denies travel out of the [place] in the last 14 days. Ebola Screen: Patient denies travel to an Ebola-affected area in the 21 days before illness onset. Initial Sepsis Screen: Does the patient meet any 2 criteria? No. Patient's initial sepsis screen is negative. Does the patient have a suspected source of infection? Yes: Skin breakdown/wound. Risk Assessment: Do you want to hurt yourself or someone else? Patient reports no desire to harm self or others. Onset of symptoms was June 12, 2022. 17:40 Method Of Arrival: Ambulatory kr3 17:40 Acuity: LONNY 4 kr3 Triage Assessment: 17:46 General: Appears in no apparent distress. comfortable, Behavior is calm, cooperative, kr3 appropriate for age. Pain: Denies pain. Historical: - Allergies: 17:44 PENICILLINS; kr3 - Home Meds: 17:44 losartan 50 mg oral tab 1 tab once daily [Active]; nebivolol 5 mg oral tab 1 tab once kr3 daily [Active]; - PMHx: 17:44 Hypertensive disorder; Diabetes mellitus; kr3 - PSHx: 17:44 L tibia repair; R knee repair; kr3 - Immunization history:: Adult Immunizations not up to date. - Social history:: Smoking status: Patient reports the use of cigarette tobacco products, smokes two packs cigarettes per day. Reported history of juuling and/or vaping. Screenin:50 [facility] ED Fall Risk Assessment (Adult) History of falling in the last 3 months, kb3 including since admission No falls in past 3 months (0 pts) Confusion or Disorientation No (0 pts) Intoxicated or Sedated No (0 pts) Impaired Gait Yes (1 pt) Mobility Assist Device Used No (0 pt) Altered Elimination No (0 pt) Score/Fall Risk Level 0 - 2 = Low Risk Oriented to surroundings, Maintained a safe environment, Educated pt \T\ family on fall prevention, incl call for assistance when getting out of bed, Assessed \T\ reinforced patient's understanding of fall precautions, Provided non-skid footwear, Hourly rounding (assess needs \T\ fall precautionary measures) done, Used ambulatory aids as needed (educated on \T\ assisted with), Used gait belt as appropriate. Abuse screen: Denies threats or abuse. Denies injuries from another. Nutritional screening: No deficits noted. Tuberculosis screening: No symptoms or risk factors identified. Assessment: 17:50 Reassessment: Patient appears in no apparent distress at this time. General: Appears in kb3 no apparent distress. comfortable, Behavior is calm, cooperative, Received care of pt from triage. Pt reports partial amputation of digit #2 on right foot 06/10/2022. Reports he was working outside today and noticed a small amount of blood on his dressing and wanted to get wound checked. Pt reports follow-up appointment with Dr Burgess on 06/15/2022.. Vital Signs: 17:40 BP 173 / 90; Pulse 90; Resp 18; Temp 98.8; Pulse Ox 94% on R/A; Weight 134.72 kg; kr3 Height 6 ft. 6 in. (198.12 cm); Pain 0/10; 19:00 BP 168 / 82; Pulse 82; Resp 18; Pulse Ox 96% ; kb3 17:40 Body Mass Index 34.32 (134.72 kg, 198.12 cm) kr3 ED Course: 17:31 Patient arrived in ED. rg4 17:44 Triage completed. kr3 17:46 Patient placed in an exam room, on a stretcher. kr3 17:50 Patient has correct armband on for positive identification. Bed in low position. Call kb3 light in reach. Side rails up X 1. 17:50 No provider procedures requiring assistance completed. Patient did not have IV access kb3 during this emergency room visit. 17:53 Bridgette Rocha FNP-C is PHCP. snw 17:53 Bright Lamb MD is Attending Physician. snw 18:06 Rufina Ramos, RN is Primary Nurse. kb3 18:32 Tenzin Burgess MD is Referral Physician. snw 18:55 Dressings: Kerlix X 1; right foot Xeroform to digit #2 on right foot, with Kerlix wrap kb3 and susan wrap to right foot. 19:10 Attending Physician role handed off by Bright Lamb MD [facility] 19:10 Heath Caballero MD is Attending Physician. [facility] Administered Medications: 18:45 Drug: Bactrim (trimethoprim-sulfamethoxazole) (160 mg-800 mg (DS) 1 tablet Route: PO; kb3 19:04 Follow up: Response: No adverse reaction kb3 18:45 Drug: DiFLUcan (fluconazole) 400 mg Route: PO; kb3 19:04 Follow up: Response: No adverse reaction kb3 Medication: 17:50 VIS not applicable for this client. kb3 Outcome: 18:36 Discharge ordered by . snw 19:17 Discharged to home ambulatory. kb3 19:17 Condition: stable 19:17 Discharge instructions given to patient, Instructed on discharge instructions, follow up and referral plans. medication usage, Demonstrated understanding of instructions, follow-up care, medications, Prescriptions given X 1. 19:17 Patient left the ED. kb3 Signatures: Heath Caballero MD MD cha Waters, Shelly, CERTIFIED ANESTHESIOLOGIST ASSISTANT-C CERTIFIED ANESTHESIOLOGIST ASSISTANT-Csnw Marci Beasley rg4 Shadia Brown RN RN kr3 Rufina Ramos, RN RN kb3
[2022-06-12] MEDS ORDERED: SMZ./TMP. 800/160 MG TABLET ONE (18:40)
[2022-06-12] MEDS ORDERED: FLUCONAZOLE 100 MG TAB ONE (18:40)
[2022-06-12 19:22] VITALS: TEMP 98.8
[2022-06-12 19:23] VITALS: BP 168/82; O2SAT 96
== END 2022-06-12 19:17 | disposition home or self-care (01) ==
LOC: ER 17:27
DX: Z48.01 Encounter for change or removal of surgical wound dressing (principal)
CPT/HCPCS: 99283

== ENCOUNTER → 2023-07-29 | Emergency (ER) | payer BC ==
[~2023-07-29] MED LIST: FUROSEMIDE 40 MG/4 ML VIAL ONE
--- OUTSIDE RECORDS SUMMARY | 2023-07-29 23:16 | XMS REPORT | Continuity of Care Document ---
Author Name Unknown Address [address] [place] [address] [facility] thconnect Address [address] [place] [address] Care Team Providers Care Director Of Global Talent Name Role Phone Pcp, Patient Does Not Have A Primary Care Physic bo Hao Durand Attending Clinician HAO SILVA Attending Clinician Unavailabl e Unknown, Attending Attending Clinician Unavailab le Doctor Unassigned, [place] Attending Clinician U navailable Payers Payer Name Policy Type Policy Number Effective Date Expirati on Date Source Problems Condition Name Condition Details Condition Category Status Onset Date Resolution Date Last Treatment Date Treating Clinician Comments Source No known active problems No known active problems Disease [facility] Allergies, Adverse Reactions, Alerts Allergy Name Allergy Type Status Severity Reaction(s) Onset Date Inactive Date Treating Clinician Comments Source PENICILL IN DRUG INGREDI Active Rash 2021-06 00:00: 00 [facility] Penicill in Propensi ty to adverse reaction s Active Rash 2021-06 00:00: 00 [facility] NO KNOWN ALLERGIE S Drug Class Active [facility] Social History Social Habit Start Date Stop Date Quantity Comments Source Exposure to SARS-CoV-2 (event) 2022-04-27 00:00:00 2022-05-07 09:08:00 Not sure [facility] Tobacco use and exposure 2022-05-07 00:00:00 2022-05-07 00:00:00 Smokeless tobacco non-user [facility] Sex Assigned At 1975 00:00:00 1975 00:00:00 [facility] Smoking Status Start Date Stop Date Source Tobacco smoking consumption unknown [facility] Never smoked tobacco [facility] Medications Ordered Medication Name Filled Medication Name Start Date Stop Date Current Medication? Ordering Clinician Indication Dosage Frequency Signature (SIG) Comments Components Source nebivoloL 5 mg tablet 2021-06 09:20: 23 Yes 5mg Take 5 mg by mouth in the morning. [facility] losartan 50 mg tablet 2021-06 09:20: 23 Yes 50mg Take 50 mg by mouth in the morning. [facility] nebivoloL 5 mg tablet 2021-06 09:20: 23 Yes 5mg Take 5 mg by mouth in the morning. [facility] losartan 50 mg tablet 2021-06 09:20: 23 Yes 50mg Take 50 mg by mouth in the morning. [facility] nebivoloL 5 mg tablet 2021-06 09:20: 23 Yes 5mg Take 5 mg by mouth in the morning. [facility] losartan 50 mg tablet 2021-06 09:20: 23 Yes 50mg Take 50 mg by mouth in the morning. [facility] nebivoloL 5 mg tablet 2021-06 09:20: 23 Yes 5mg Take 5 mg by mouth in the morning. [facility] losartan 50 mg tablet 2021-06 09:20: 23 Yes 50mg Take 50 mg by mouth in the morning. [facility] clindamycin 150 mg capsule 2021-06 00:00: 00 05-18 05:59 :00 No [id number] 450mg Take 3 capsules by mouth in the morning and 3 capsules at noon and 3 capsules in the evening. Do all this for 10 days. [facility] doxycycline hyclate 100 mg tablet 2021-06 00:00: 00 05-18 05:59 :00 No [id number] 100mg Take 1 tablet by mouth in the morning and 1 tablet in the evening. Do all this for 10 days. [facility] clindamycin 150 mg capsule 2021-06 00:00: 00 05-18 05:59 :00 No [id number] 450mg Take 3 capsules by mouth in the morning and 3 capsules at noon and 3 capsules in the evening. Do all this for 10 days. [facility] doxycycline hyclate 100 mg tablet 2021-06 00:00: 00 05-18 05:59 :00 No [id number] 100mg Take 1 tablet by mouth in the morning and 1 tablet in the evening. Do all this for 10 days. [facility] clindamycin 150 mg capsule 2021-06 00:00: 00 05-18 05:59 :00 No [id number] 450mg Take 3 capsules by mouth in the morning and 3 capsules at noon and 3 capsules in the evening. Do all this for 10 days. [facility] doxycycline hyclate 100 mg tablet 2021-06 00:00: 00 05-18 05:59 :00 No [id number] 100mg Take 1 tablet by mouth in the morning and 1 tablet in the evening. Do all this for 10 days. [facility] clindamycin 150 mg capsule 2021-06 00:00: 00 05-18 05:59 :00 No [id number] 450mg Take 3 capsules by mouth in the morning and 3 capsules at noon and 3 capsules in the evening. Do all this for 10 days. [facility] doxycycline hyclate 100 mg tablet 2021-06 00:00: 00 05-18 05:59 :00 No [id number] 100mg Take 1 tablet by mouth in the morning and 1 tablet in the evening. Do all this for 10 days. [facility] Vital Signs Vital Name Observation Time Observation Value Comments Cy reina Systolic blood pressure 2022-05-07 15:16:00 149 mm[Hg] [place] [facility] Diastolic blood pressure 2022-05-07 15:16:00 93 mm[Hg] [place] [facility] Heart rate 2022-05-07 15:16:00 68 /min [facility] Body temperature 2022-05-07 15:16:00 36.56 Kiley [facility] Body height 2022-05-07 15:16:00 198.1 cm [facility] Body weight 2022-05-07 15:16:00 131.815 kg [facility] BMI 2022-05-07 15:16:00 33.58 kg/m2 [facility] Oxygen saturation in Arterial blood by Pulse oximetry 2022-05-07 15:16:00 100 /min [place] [facility] Procedures Procedure Date / Time Performed Performing Clinicia n Source XR FOOT 3+ VW RIGHT 2022-05-07 15:57:35 Melinda Silva [facility] ASSIGNMENT OF BENEFITS 2022-05-07 15:05:59 Docto r Unassigned, [place] [facility] Encounters Start Date/Time End Date/Time Encounter Type Admission Type Attending Clinicians Care Facility Care Department Encounter ID Source 2022-05-12 00:00:00 2022-05-12 00:00:00 [facility] [id number] [facility] 2022-05-11 00:00:00 2022-05-11 00:00:00 Telephone Melinda Silvawili [facility] [id number] [facility] 2022-05-07 09:40:44 2022-05-07 23:59:00 Outpatient R HAO SILVA [facility] [id number] [facility] 2022-05-07 09:40:44 2022-05-07 23:59:00 [facility] [id number] [facility] 2022-05-07 09:00:00 2022-05-07 10:02:22 Urgent Care Hao Silva Unknown, Attending [facility] [id number] [facility] 2022-05-07 00:00:00 2022-05-07 00:00:00 Orders Only Doctor Unassigned, [place] [facility] [id number] [facility]
[2023-07-29 23:44] LABS: Absolute Lymphocytes (CBC) 0.8 K/uL (0.7-4.9); Hematocrit 58.5 % (39.6-49.0); Lymphocytes % 7.7 % (15.3-44.8); MCV 92.3 fL (80-100); MPV 7.7 fL (7.6-11.3); Platelets 207 thou/uL (152-406); RBC Red Blood Cell Count 6.34 M/uL (4.33-5.43)
[2023-07-29 23:53] LABS: Protime INR 1.1
[2023-07-30 00:07] LABS: Albumin 4.3 g/dL (3.4-5.0); Bilirubin Direct 0.3 mg/dL (0-0.2); Bilirubin Indirect, Calculated 0.6 mg/dL (0.2-0.8); Bilirubin Total 0.9 mg/dL (0.2-1.0); Magnesium 2.1 mg/dL (1.6-2.4); Potassium 4.3 mEq/L (3.5-5.1); Protein, Total 8.6 g/dL (6.4-8.2); Troponin High Sensitivity 35.4 pg/mL (<58.9)
--- NOTE | 2023-07-30 00:51 | EDPHYS ---
Physician Documentation [facility] Name: Diallo Diez Age: 48 yrs Sex: Male : 1975 Arrival Date: 07/29/2023 Time: 23:12 Bed 4 Private MD: ED Physician Arnel Moore HPI: 07/29 23:33 This 48 yrs old Male presents to ER via Ambulatory with complaints of chest tightness, sb4 leg swelling. 23:33 patient with history of tobacco abuse presents with complaints of 3 weeks of chest sb4 tightness and bilateral lower extremity exam that he noticed today. he also endorses HARRIS and orthopnea. states he has been on prednisone and albuterol for about a day and half without significant improvement in symptoms. denies any current pain. Historical: - Allergies: 23:33 PENICILLINS; jb4 - PMHx: 23:33 diabetes mellitus; Hypertensive disorder; jb4 - PSHx: 23:33 L tibia repair; R knee repair; jb4 - Social history:: Smoking status: Patient reports the use of cigarette tobacco products. ROS: 23:33 Constitutional: Negative for fever, chills, and weight loss, sb4 23:33 Cardiovascular: Positive for edema, orthopnea, chest tightness, 23:33 All other systems are negative, Exam: 23:33 Constitutional: This is a well developed, well nourished patient who is awake, alert, sb4 and in no acute distress. Head/Face: Normocephalic, atraumatic. Eyes: Extra-ocular motions intact. Periorbital areas with no swelling, redness, or edema. ENT: Mucous membranes moist. Abdomen/GI: Soft, non-tender, no distension. Skin: Warm, dry with normal turgor. Normal color with no rashes, no lesions, and no evidence of cellulitis. MS/ Extremity: Pulses equal, no cyanosis. Neurovascular intact. Full, normal range of motion. 23:33 Cardiovascular: Rate: normal, Rhythm: regular, Edema: 2+ edema to level of left ankle and right ankle, JVD: is not appreciated, 23:33 Respiratory: the patient does not display signs of respiratory distress, Respirations: normal, Breath sounds: wheezing: expiratory is heard in the left posterior upper lobe, Vital Signs: 23:31 BP 166 / 118; Pulse 92; Resp 16; Pulse Ox 97% on R/A; Weight 136.08 kg; Height 6 ft. 6 jb4 in. (R); 07/30 01:00 BP 148 / 98; Pulse 81; Resp 16; Pulse Ox 96% on R/A; jb4 07/29 23:31 Body Mass Index 34.67 (136.08 kg, 198.12 cm) jb4 MDM: 07/29 23:20 Patient medically screened. sb4 23:33 Differential diagnosis: acute myocardial infarction, congestive heart failure sb4 pneumonia, COPD. 07/30 00:49 Data reviewed: vital signs, nurses notes, lab test result(s), EKG, radiologic studies, sb4 I have discussed the patient's presentation/case with the attending Emergency Department Physician; and as a result, I will discharge patient. Consideration of Admission/Observation Escalation of care including admission/observation considered. Historians other than the Patient: Spouse/Significant Other: . Care significantly affected by the following chronic conditions: Diabetes, Hypertension. 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 07/29 23:32 Order name: Basic Metabolic Panel; Complete Time: 00:13 sb4 07/29 23:32 Order name: CBC with Diff; Complete Time: 23:50 sb4 07/29 23:32 Order name: LFT's; Complete Time: 00:13 sb4 07/29 23:32 Order name: Magnesium; Complete Time: 00:13 sb4 07/29 23:32 Order name: NT PRO-BNP; Complete Time: 00:13 sb4 07/29 23:32 Order name: PT-INR; Complete Time: 23:53 sb4 07/29 23:32 Order name: Troponin HS; Complete Time: 00:13 sb4 07/29 23:32 Order name: XRAY Chest (1 view) sb4 07/29 23:32 Order name: EKG; Complete Time: 23:32 sb4 07/29 23:32 Order name: Cardiac monitoring; Complete Time: 23:37 sb4 07/29 23:32 Order name: EKG - Nurse/Tech; Complete Time: 23:37 sb4 07/29 23:32 Order name: IV Saline Lock; Complete Time: 23:37 sb4 07/29 23:32 Order name: Labs collected and sent; Complete Time: 23:37 sb4 07/29 23:32 Order name: O2 Per Protocol; Complete Time: :37 sb4 07/29 23:32 Order name: O2 Sat Monitoring; Complete Time: :37 sb4 EC/17 23:36 Rate is 89 beats/min. Rhythm is regular, Normal Sinus Rhythm with Right bundle branch sb4 block. MO interval is normal at 168 msec. QRS interval is normal at 162 msec. QT interval is prolonged at 432 msec. No Q waves. Clinical impression: Normal ECG and No evidence of ischemia. Interpreted by me. Reviewed by me. Administered Medications: 07/30 01:02 Drug: Furosemide IVP 40 mg IVP once; give over 2 minutes Route: IVP; Site: right jb4 antecubital; Disposition Summary: 07/30/23 00:50 Discharge Ordered Notes: Location: Home sb4 Problem: an ongoing problem sb4 Symptoms: have improved sb4 Condition: Stable sb4 Diagnosis - peripheral edema sb4 Followup: sb4 - With: Alhaji Girard MD - When: 2 - 3 days - Reason: Further diagnostic work-up, Recheck today's complaints, Re-evaluation by your physician Discharge Instructions: - Discharge Summary Sheet sb4 - Heart Failure, Diagnosis sb4 - Echocardiogram sb4 - Peripheral Edema sb4 Forms: - Medication Reconciliation Form sb4 - Thank You Letter sb4 - Patient Portal Instructions sb4 - Leadership Thank You Letter sb4 Signatures: Dispatcher [employer] Tenzin Fulton RN RN jb4 Dorcas Rosario PA-C PA-C sb4
--- NOTE | 2023-07-30 00:51 | ER ---
Nurse's Notes [facility] Name: Diallo Diez Age: 48 yrs Sex: Male : 1975 Arrival Date: 07/29/2023 Time: 23:12 Bed 4 Private MD: Diagnosis: peripheral edema Presentation: 07/29 23:31 Chief complaint: Patient states: I have been having chest pain, I got on google for the jb4 swelling in my legs and saw possible heart failure so I wanted to come get checked out. Coronavirus screen: At this time, the client does not indicate any symptoms associated with coronavirus-19. Ebola Screen: No symptoms or risks identified at this time. Initial Sepsis Screen: Does the patient meet any 2 criteria? HR > 90 bpm. Yes Does the patient have a suspected source of infection? No. Patient's initial sepsis screen is negative. Risk Assessment: Do you want to hurt yourself or someone else? Patient reports no desire to harm self or others. Onset of symptoms was July 29, 2023. Transition of care: patient was not received from another setting of care. 23:31 Method Of Arrival: Ambulatory jb4 23:31 Acuity: LONNY 3 jb4 Historical: - Allergies: 23:33 PENICILLINS; jb4 - PMHx: 23:33 diabetes mellitus; Hypertensive disorder; jb4 - PSHx: 23:33 L tibia repair; R knee repair; jb4 - Social history:: Smoking status: Patient reports the use of cigarette tobacco products. Screenin/18 01:16 [facility] ED Fall Risk Assessment (Adult) History of falling in the last 3 months, jb4 including since admission No falls in past 3 months (0 pts) Confusion or Disorientation No (0 pts). Abuse screen: Denies threats or abuse. Nutritional screening: No deficits noted. Tuberculosis screening: No symptoms or risk factors identified. Assessment: 07/29 23:45 General: Appears in no apparent distress. comfortable, Behavior is calm, cooperative, jb4 appropriate for age. Pain: Complains of pain in chest Pain does not radiate. Pain currently is 3 out of 10 on a pain scale. Neuro: Level of Consciousness is awake, alert, obeys commands, Oriented to person, place, time, situation. Cardiovascular: Patient's skin is warm and dry. Respiratory: Airway is patent Respiratory effort is even, unlabored, Respiratory pattern is regular, symmetrical. GI: No signs and/or symptoms were reported involving the gastrointestinal system. : No signs and/or symptoms were reported regarding the genitourinary system. EENT: No signs and/or symptoms were reported regarding the EENT system. Derm: Skin is intact, Skin is pink, warm \T\ dry. Musculoskeletal: Circulation, motion, and sensation intact. Range of motion: intact in all extremities. 07/30 01:15 Reassessment: Patient appears in no apparent distress at this time. Patient and/or jb4 family updated on plan of care and expected duration. Pain level reassessed. Patient is alert, oriented x 3, equal unlabored respirations, skin warm/dry/pink. Vital Signs: 07/29 23:31 BP 166 / 118; Pulse 92; Resp 16; Pulse Ox 97% on R/A; Weight 136.08 kg; Height 6 ft. 6 jb4 in. (R); 07/30 01:00 BP 148 / 98; Pulse 81; Resp 16; Pulse Ox 96% on R/A; jb4 07/29 23:31 Body Mass Index 34.67 (136.08 kg, 198.12 cm) jb4 ED Course: 07/29 23:17 Patient arrived in ED. jb4 23:20 Dorcas Rosario PA-C is PHCP. sb4 23:20 Arnel Moore MD is Attending Physician. sb4 23:33 Triage completed. jb4 23:33 Arm band placed on right wrist. EKG completed in triage. Results shown to MD. jb4 23:34 Initial lab(s) drawn, by ct, sent to lab. Inserted saline lock: 18 gauge in right jb4 antecubital area, using aseptic technique. Blood collected. 23:37 Basic Metabolic Panel Sent. jb4 23:37 CBC with Diff Sent. jb4 23:37 LFT's Sent. jb4 23:37 Magnesium Sent. jb4 23:37 NT PRO-BNP Sent. jb4 23:37 PT-INR Sent. jb4 23:38 Troponin HS Sent. jb4 23:58 XRAY Chest (1 view) In Process Unspecified. EDMS 07/30 00:50 Alhaji Girard MD is Referral Physician. sb4 01:16 Patient has correct armband on for positive identification. Bed in low position. Call jb4 light in reach. Side rails up X 1. 01:16 No provider procedures requiring assistance completed. IV discontinued, intact, jb4 bleeding controlled, No redness/swelling at site. Pressure dressing applied. Administered Medications: 01:02 Drug: Furosemide IVP 40 mg IVP once; give over 2 minutes Route: IVP; Site: right jb4 antecubital; Outcome: 00:50 Discharge ordered by . dashawn 01:16 Discharged to home ambulatory, jb4 01:16 Condition: stable 01:16 Discharge instructions given to patient, Instructed on discharge instructions, follow up and referral plans. Demonstrated understanding of instructions, follow-up care, 01:17 Patient left the ED. jb4 Signatures: Dispatcher [employer] EDTenzin Jason RN RN jb4 Dorcas Rosario PA-C PA-C sb4
[2023-07-30 01:41] VITALS: BP 148/98; O2SAT 96
--- NOTE | 2023-07-31 10:58 | EKG ---
Test Date: 2023-07-29 Test Time: 23:24:35 Emergency Vehicle Driver: AVTAR MEASUREMENT RESULTS: Intervals: Rate: 89 NJ: 168 QRSD: 162 QT: 432 QTc: 525 Polo: P: 72 NJ: 168 QRS: 263 T: 84 INTERPRETIVE STATEMENTS: Normal sinus rhythm Right bundle branch block Anteroseptal infarct, age undetermined T wave abnormality, consider lateral ischemia Abnormal ECG No previous ECG available for comparison Electronically Signed On 07-31-23 10:56:18 REGIONAL CLIMATE CHANGE ANALYST by Ezio Burrell
--- NOTE | 2023-07-31 11:49 | RAD REPORT ---
EXAM DESCRIPTION: RAD - Chest Single View - 07/29/2023 11:56 pm CLINICAL HISTORY: DYSPNEA TECHNIQUE: AP chest COMPARISON: None available for comparison FINDINGS: CHEST: Heart: The cardiomediastinal silhouette is within normal limits. Lungs: No focal consolidation. Mild interstitial prominence, likely chronic. Mediastinum: Unremarkable Pleura: No appreciable effusion. No pneumothorax. Bones: Intact IMPRESSION: Mild interstitial prominence, likely chronic. No focal consolidation. Electronically signed by: Magno Gustafson MD 07/30/2023 12:19 AM CANDY MAKER Due to temporary technical issues with the PACS/Fluency reporting system, reports are being signed by the in house radiologist without review as a courtesy to ensure prompt reporting. The interpreting r adiologist is fully responsible for the content of the report.
== END ==
LOC: ER 23:12
DX: R60.9 Edema, unspecified (principal); R07.89 Other chest pain; I10 Essential (primary) hypertension; E11.9 Type 2 diabetes mellitus without complications; Z72.0 Tobacco use; Z88.0 Allergy status to penicillin
CPT/HCPCS: 36415; 71045; 80048; 80076; 83735; 83880; 84484; 85025; 85610; 93005

== ENCOUNTER 2023-11-15 11:24 | Inpatient (IN) | payer BC, OTHER ==
[2023-11-15 12:53] LABS: Absolute Basophils 0.1 K/uL (0-0.5); Absolute Eosinophils 0.1 K/uL (0-0.5); Absolute Lymphocytes (CBC) 1.3 K/uL (0.7-4.9); Absolute Monocytes 0.8 K/uL (0.1-1.3); Absolute Neutrophil 7.2 K/uL (1.8-8.0); Basophils % 0.6 % (0-1.3); Eosinophils % 1.6 % (0-4.4); Hematocrit 52.4 % (39.6-49.0); Hemoglobin 17.7 g/dL (13.6-17.9); Lymphocytes % 13.3 % (15.3-44.8); MCH 31.3 pg (27.0-35.0); MCHC 33.8 g/dL (32.0-36.0); MCV 92.8 fL (80-100); MPV 7.5 fL (7.6-11.3); Neutrophils % 76.5 % (41.7-73.7); Platelets 233 thou/uL (152-406); RBC Red Blood Cell Count 5.65 M/uL (4.33-5.43); Red Cell Distribution Width 14.9 % (12.1-15.2)
[2023-11-15 13:09] LABS: Anion Gap 8.2 mEq/L (5.0-15.0); Potassium 4.2 mEq/L (3.5-5.1)
--- NOTE | 2023-11-15 13:32 | ER ---
Nurse's Notes [facility] Name: Diallo Diez Age: 48 yrs Sex: Male : 1975 Arrival Date: 11/15/2023 Time: 11:24 Bed 14 Private MD: Diagnosis: Cellulitis of left lower limb;Essential (primary) hypertension Presentation: 11/14 11:45 Chief complaint: Patient states: he hit his left foot on a trailer on 11/09. patient has ap3 been evaluated out patient but the wound continues to swell. Coronavirus screen: At this time, the client does not indicate any symptoms associated with coronavirus-19. Ebola Screen: No symptoms or risks identified at this time. Initial Sepsis Screen: Does the patient meet any 2 criteria? HR > 90 bpm. Does the patient have a suspected source of infection? No. Patient's initial sepsis screen is negative. Risk Assessment: Do you want to hurt yourself or someone else? Patient reports no desire to harm self or others. Onset of symptoms was November 10, 2023. 11:45 Method Of Arrival: Wheelchair ap3 11:45 Acuity: LONNY 3 ap3 Triage Assessment: 11:48 General: Appears in no apparent distress. Behavior is calm, cooperative, appropriate ap3 for age. Pain: Complains of pain in left foot Pain currently is 5 out of 10 on a pain scale. Neuro: Level of Consciousness is awake, alert, obeys commands, Oriented to person, place, time, situation. Cardiovascular: Patient's skin is warm and dry. Respiratory: Airway is patent Respiratory effort is even, unlabored, Respiratory pattern is regular, symmetrical. 15:42 Injury Description: No injury. cm10 Historical: - Allergies: 11:48 PENICILLINS; ap3 - PMHx: 11:48 diabetes mellitus; Hypertensive disorder; ap3 - PSHx: 11:48 L tibia repair; R knee repair; ap3 - Immunization history:: Client reports having NOT received the Covid vaccine. Last tetanus immunization: up to date Flu vaccine is not up to date. - Infectious Disease History:: Denies. - Social history:: Smoking status: Patient reports the use of cigarette tobacco products, smokes two packs cigarettes per day. Screenin:49 Abuse screen: Denies threats or abuse. Nutritional screening: No deficits noted. ap3 Tuberculosis screening: No symptoms or risk factors identified. 15:42 [facility] ED Fall Risk Assessment (Adult) History of falling in the last 3 months, cm10 including since admission Yes- single mechanical fall (1 pt) Confusion or Disorientation No (0 pts) Intoxicated or Sedated No (0 pts) Impaired Gait Yes (1 pt) Mobility Assist Device Used Yes (1 pt) Altered Elimination No (0 pt) Score/Fall Risk Level 3 or more points = High Risk Oriented to surroundings, Maintained a safe environment, Hourly rounding (assess needs \T\ fall precautionary measures) done. Assessment: 15:20 General: Order fro Vanc faxed to pharmacy. cm10 15:39 General: Assumed care of patient at 1500. Pt resting on stretcher at this time. Pt cm10 updated on plan of care. Pt's at bedside.. 15:40 General: Appears in no apparent distress. comfortable, Behavior is calm, cooperative. cm10 Neuro: No deficits noted. Level of Consciousness is awake, alert, obeys commands, Oriented to person, place, time, situation, Appropriate for age. Respiratory: No deficits noted. Airway is patent Respiratory effort is even, unlabored, Respiratory pattern is regular, symmetrical. Derm: Skin has blisters on Left ankle Skin is red, Wound noted left foot. Musculoskeletal: Swelling present in left leg. 17:29 Reassessment: Patient appears in no apparent distress at this time. No changes from cm10 previously documented assessment. Patient and/or family updated on plan of care and expected duration. Pain level reassessed. Patient is alert, oriented x 3, equal unlabored respirations, skin warm/dry/pink. Vital Signs: 11:45 BP 157 / 95; Pulse 96; Resp 18; Temp 97.8; Pulse Ox 99% ; Weight 136.08 kg; Height 6 ap3 ft. 6 in. ; Pain 5/10; 15:30 BP 144 / 92; Pulse 86; Resp 16; Pulse Ox 93% on R/A; cm10 17:30 BP 144 / 97; Pulse 86; Resp 18; Pulse Ox 100% on R/A; cm10 11:45 Body Mass Index 34.67 (136.08 kg, 198.12 cm) ap3 11:45 Pain Scale: Adult ap3 ED Course: 11:26 Patient arrived in ED. mr 11:32 Caden Nuñez DO is Attending Physician. ms3 11:48 Triage completed. ap3 11:49 Arm band placed on right wrist. ap3 12:44 Initial lab(s) drawn, First set of blood cultures drawn by me. ap3 12:56 Inserted saline lock: 22 gauge in left hand, using aseptic technique. Blood collected. ap3 13:31 Alida Hagen MD is Hospitalizing Provider. ms3 15:12 Lina Tomas, RN is Primary Nurse. cm10 15:13 Second set of blood cultures drawn by me. Inserted saline lock: 22 gauge in right sm8 forearm, using aseptic technique. Blood collected. 15:42 Patient has correct armband on for positive identification. Bed in low position. Call cm10 light in reach. Pulse ox on. NIBP on. 15:43 No provider procedures requiring assistance completed. cm10 15:44 Patient admitted, IV remains in place. cm10 19:29 Provided Education on: Need for admit.. cm10 Administered Medications: 16:00 Drug: vancoMYCIN IVPB 1.5 grams IVPB at calculated rate once Route: IVPB; Rate: cm10 calculated rate; Site: right hand; 19:29 Follow up: IV Status: Completed infusion; IV Intake: 500ml cm10 17:17 Drug: Acetaminophen PO 1000 mg PO once Route: PO; cm10 19:29 Follow up: Response: No adverse reaction cm10 Medication: 15:42 VIS not applicable for this client. cm10 Intake: 19:29 IV: 500ml; Total: 500ml. cm10 Outcome: 13:32 Decision to Hospitalize by Provider. ms3 15:44 Admitted to ER Hold. Please see [facility] for further documentation. cm10 15:44 Condition: good 15:44 Instructed on the need for admit, 11/15 11:54 Patient left the ED. rs5 Signatures: Gia Delgado, Reg Reg mr IngridzoranSabi, RN RN ap3 Caden Nuñez DO DO ms3 Alan Meier RN RN rs5 Lina Tomas, BARBARA JIMENEZ cm10 Nathaly Galo sm8 Corrections: (The following items were deleted from the chart) 11/14 20:36 17:30 BP 144 / 97; Pulse 8bpm; Resp 18bpm; Pulse Ox 100% RA; cm10 cm10
--- NOTE | 2023-11-15 13:33 | EDPHYS ---
Physician Documentation [facility] Name: Diallo Diez Age: 48 yrs Sex: Male : 1975 Arrival Date: 11/15/2023 Time: 11:24 Bed 14 Private MD: ED Physician Caden Nuñez HPI: 11/14 15:30 This 48 yrs old Male presents to ER via Wheelchair with complaints of Foot Injury. ms3 15:30 48-year-old male with past medical history of diabetes, hypertension [place] [facility] [place] status post hitting his foot on November 09. Patient states the area has been red and swelling. Patient rates the pain a 5/10. He denies any inciting factors. Patient states he has taken Aleve with mild relief of his pain.. Historical: - Allergies: 11:48 PENICILLINS; ap3 - PMHx: 11:48 diabetes mellitus; Hypertensive disorder; ap3 - PSHx: 11:48 L tibia repair; R knee repair; ap3 - Immunization history:: Client reports having NOT received the Covid vaccine. Last tetanus immunization: up to date Flu vaccine is not up to date. - Infectious Disease History:: Denies. - Social history:: Smoking status: Patient reports the use of cigarette tobacco products, smokes two packs cigarettes per day. ROS: 15:30 Constitutional: Negative for fever, and chills. Neck: Negative for injury, pain, and ms3 swelling, Cardiovascular: Negative for chest pain, and palpitations. Respiratory: Negative for shortness of breath, cough, wheezing, and pleuritic chest pain, Abdomen/GI: Negative for abdominal pain, nausea, vomiting, diarrhea, and constipation, 15:30 MS/Extremity: Negative for injury and deformity, 15:30 Skin: Positive for abrasion(s), cellulitis, erythema, laceration(s), Exam: 15:30 Constitutional: This is a well developed, well nourished patient who is awake, alert, ms3 and in no acute distress. Head/Face: Normocephalic, atraumatic. Chest/axilla: Normal chest wall appearance and motion. Nontender with no deformity. Cardiovascular: Regular rate and rhythm with a normal S1 and S2. No gallops, murmurs, or rubs. Normal PMI, no JVD. No pulse deficits. Respiratory: Lungs have equal breath sounds bilaterally, clear to auscultation and percussion. No rales, rhonchi or wheezes noted. No increased work of breathing, no retractions or nasal flaring. Abdomen/GI: Soft, non-tender, with normal bowel sounds. No distension or tympany. No guarding or rebound. No evidence of tenderness throughout. 15:30 Skin: cellulitis, that is severe, well demarcated, on the left foot and left tolentino, injury, abrasion(s), small abrasion noted, of the left foot, Vital Signs: 11:45 BP 157 / 95; Pulse 96; Resp 18; Temp 97.8; Pulse Ox 99% ; Weight 136.08 kg; Height 6 ap3 ft. 6 in. ; Pain 5/10; 15:30 BP 144 / 92; Pulse 86; Resp 16; Pulse Ox 93% on R/A; cm10 17:30 BP 144 / 97; Pulse 86; Resp 18; Pulse Ox 100% on R/A; cm10 11:45 Body Mass Index 34.67 (136.08 kg, 198.12 cm) ap3 11:45 Pain Scale: Adult ap3 MDM: 11:59 Patient medically screened. ms3 15:30 Differential diagnosis: cellulitis. Data reviewed: vital signs, nurses notes, lab test ms3 result(s), and as a result, I will admit patient. Consideration of Admission/Observation Patient was admitted/placed on observation. Management of patient was discussed with the following: Hospitalist: Dr. Hagen. 15:33 I considered the following discharge prescriptions or medication management in [place] [facility] [place] Medications were administered in the Emergency Department. See MAR. Care significantly affected by the following chronic conditions: Diabetes, Hypertension. Counseling: I had a detailed discussion with the patient and/or guardian regarding the historical points, exam findings, and any diagnostic results supporting the discharge/admit diagnosis, lab results, the need for further work-up and treatment in the hospital. ED course: Discussed necessity of admission with patient. Patient understands agrees with plan. All questions were answered.. 11/14 11:45 Order name: CBC with Diff; Complete Time: 13:30 ms3 11/14 11:45 Order name: BMP; Complete Time: 13:30 ms3 11/14 11:45 Order name: Blood Culture Adult (2) ms3 11/14 17:18 Order name: Hemoglobin A1c; Complete Time: 11:27 EDMS 11/14 17:18 Order name: CBC with Automated Diff EDMS 11/14 17:18 Order name: CBC with Automated Diff EDMS 11/14 17:18 Order name: Comprehensive Metabolic Panel EDMS 11/14 17:18 Order name: Comprehensive Metabolic Panel EDMS 11/14 17:18 Order name: Lipid Profile EDMS 11/14 17:18 Order name: Lipid Profile EDMS 11/14 17:18 Order name: Magnesium EDMS 11/14 17:18 Order name: Magnesium EDMS 11/14 17:18 Order name: Phosphorus EDMS 11/14 17:18 Order name: Phosphorus EDMS 11/14 22:48 Order name: Glucose, Ancillary Testing; Complete Time: 11:27 EDMS 11/15 09:39 Order name: Glucose, Ancillary Testing; Complete Time: 11:27 EDMS 11/14 17:18 Order name: Foot Left 3 View; Complete Time: 11:27 EDMS 11/14 17:18 Order name: Extremity Venous Uni Ltd; Complete Time: 11:27 EDMS 11/14 17:18 Order name: Lower Extremity Artery Uni Ltd; Complete Time: 11:27 EDMS 11/14 18:09 Order name: CT; Complete Time: 11:27 EDMS 11/14 17:18 Order name: CONS Physician Consult EDMS Administered Medications: 16:00 Drug: vancoMYCIN IVPB 1.5 grams IVPB at calculated rate once Route: IVPB; Rate: cm10 calculated rate; Site: right hand; 19:29 Follow up: IV Status: Completed infusion; IV Intake: 500ml cm10 17:17 Drug: Acetaminophen PO 1000 mg PO once Route: PO; cm10 19:29 Follow up: Response: No adverse reaction cm10 Disposition Summary: 11/15/23 13:32 Hospitalization Ordered Notes: Hospitalization Status: Inpatient Admission ms3 Provider: Alida Hagen ms3 Condition: Stable ms3 Problem: new ms3 Symptoms: are unchanged ms3 Bed/Room Type: Standard ms3 Location: Telemetry/MedSurg (observation)(11/16/23 10:44) bc6 Room Assignment: 412(11/16/23 10:57) ja1 Diagnosis - Cellulitis of left lower limb ms3 - Essential (primary) hypertension ms3 Forms: - Medication Reconciliation Form ms3 - SBAR form ms3 - Leadership Thank You Letter ms3 Signatures: Dispatcher [employer] EDBrigida Ham Jahala RN RN jl7 Magno Jenkins RN RN ja1 Sabi Dela Cruz RN RN ap3 Caden Nuñez, DO ms3 Phyllis Kilgore 6 Lina Tomas RN RN cm10 Corrections: (The following items were deleted from the chart) 15:39 13:32 Telemetry/MedSurg (Inpatient) ms3 jl7 15:39 13:32 ms3 jl7 15:45 15:39 [facility] ER HOLD jl7 jl7 15:45 15:39 ERHOLD- jl7 jl7 15:45 15:45 Telemetry/MedSurg (observation) jl7 jl7 15:45 15:45 jl7 jl7 18:21 15:45 Telemetry/MedSurg (Inpatient) jl7 bd 18:21 15:45 jl7 bd 11/15 10:44 06 18:21 [facility] ER HOLD bd [facility] 11/15 10:44 11/14 18:21 ERHOLD- bd [facility] 11/15 10:57 10:[address] [place], [place] [address]
--- NOTE | 2023-11-15 14:51 | P.HP ---
Certification for Inpatient Patient admitted to: Inpatient With expected LOS: >2 Midnights <Bridgette Rocha - Last Filed: 11/15/23 17:34> Patient History Date of Service: 11/15/23 Reason for admission: cellulitis/wound to left lower ext History of Present Illness: Mr. Diez is a 48-year-old with a past medical history of hypertension, hyperlipidemia, diabetes, and tobacco abuse. While at work on Monday, 6 days ago, he caught his left foot between a forklift and trailer. He originally went to the [facility] and had imaging. His left lower extremity has continued to swell with increasing redness since that time. He states he was recently diagnosed with diabetes, but is a 2 pack/day smoker and 1-1/2 years ago had an amputation of his right second toe secondary to osteomyelitis. CBC and Chem-7 performed in the emergency room were basically unremarkable. We will admit him for further imaging/workup and consult with Dr. Burgess. 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 - Social History Smoking Status: Heavy Tobacco smoker (>10 cigarettes/day) Alcohol use: Yes CD- Drugs: No Caffeine use: Yes Place of Residence: Home <Bridgette Rocha - Last Filed: 11/15/23 17:34> Date of Service: 11/15/23 <Alida Hagen - Last Filed: 11/15/23 19:10> Allergies Penicillins Allergy (Verified 02/13/22 19:43) Rash Home Medications: Losartan Potassium 50 mg PO DAILY 05/25/22 Nebivolol HCl 5 mg PO DAILY 05/25/22 Review of Systems 10-point ROS is otherwise unremarkable General: As per HPI Integumentary: As per HPI <Bridgette Rocha - Last Filed: 11/15/23 17:34> Physical Examination - Physical Exam General: Alert, In no apparent distress, Oriented x3, Obese HEENT: Atraumatic, Normocephalic Neck: Supple Respiratory: Expiratory wheezes Cardiovascular: No edema, Normal S1 S2 Capillary refill: <2 Seconds Gastrointestinal: Soft and benign Musculoskeletal: No clubbing Integumentary: Other (left knee with mild edema, lower ext with erythema, lateral foot with severe erythema while the medial aspect of foot with pallor, mod/severe edema of entire foot. avulsion of skin over the medial aspect of the metatarsal with all intriginous areas crusted. ) Neurological: Normal speech, Normal tone, Normal affect Lymphatics: No axilla or inguinal lymphadenopathy External genitalia: Deferred Rectal: Deferred - Studies Laboratory Data (last 24 hrs) 11/15/23 11/15/23 12:44 12:44 WBC 9.50 Hgb 17.7 Hct 52.4 H Plt Count 233 Sodium 135 L Potassium 4.2 BUN 16 Creatinine 0.83 Glucose 153 H <Bridgette Rocha - Last Filed: 11/15/23 17:34> - Studies Laboratory Data (last 24 hrs) 11/15/23 11/15/23 12:44 12:44 WBC 9.50 Hgb 17.7 Hct 52.4 H Plt Count 233 Sodium 135 L Potassium 4.2 BUN 16 Creatinine 0.83 Glucose 153 H <Alida Hagen - Last Filed: 11/15/23 19:10> Assessment and Plan - Plan Cellulitis: r/o Osteo US venous and arterial left lower ext CT left foot Blood cultures Vancomycin Consult Dr. Burgess (done) DM: FSBS q6h with SSI coverage HTN: continue home meds monitor and trend Atorvastatin 40mg po q hs Tobacco abuse: recommend cessation VRE prophylaxis Lovenox - Advance Directives Does patient have a Living Will: No Does patient have a Durable POA for Healthcare: No <Bridgette Rocha - Last Filed: 11/15/23 17:34> - Plan Pt seen and examined. I agree with the note by the [employer] OPERATOR. Pt is a 48yo male with past medical history of hypertension, hyperlipidemia, diabetes, and tobacco abuse who presents with left foot cellulitis with serous drainage. Pt reports that he had a forklift accident at work last monday. His left foot was caught between a forklift and trailer. The wound progressively and caused swelling and erythema of the left leg. On admission, lab studies show wbc 9.5, Hgb 17.1, K 4.2, Cr 0.83 and Na 135. At bedside, pt is in NAD. A/P: Left leg cellulitis: Will continue iv vanc and prn pain med. Consulted Gen surgeon. F/u wound cx. Left leg edema: Will f/u doppler ultrasound to r/o DVT Htn: Continue home med HLD: Statin DM II: Continue accuchek, SSI and ADA diet Tobacco abuse: Pt was advised to quit smoking. Will give nicotine DVT ppx: heparin Code: full <Alida Hagen - Last Filed: 11/15/23 19:10>
[2023-11-15] MEDS: VANCOMYCIN 1.5 GM in NA CHLORIDE 0.9% 500 ML IVPB ONE (16:00)
[2023-11-15] MEDS ORDERED: ACETAMINOPHEN 500 MG TAB ONE (17:11)
--- NOTE | 2023-11-15 18:08 | RAD REPORT ---
EXAM DESCRIPTION: CT - Foot Left Wo Con - 11/15/2023 5:56 pm CLINICAL HISTORY: cellulitis, wound Pain and swelling COMPARISON: Foot Left 3 View dated 11/15/2023 FINDINGS: There is significant soft tissue edema present throughout the lower leg. Hardware is prese nt in the distal fibula. Nondisplaced fractures seen involving the medial base of the proximal phalan x of the great toe. Advanced arthritic changes tibiotalar joint. IMPRESSION: Nondisplaced fracture medial base proximal phalanx of the great toe.
--- NOTE | 2023-11-15 18:09 | RAD REPORT ---
EXAM DESCRIPTION: RAD - Foot Left 3 View - 11/15/2023 6:03 pm CLINICAL HISTORY: trauma COMPARISON: <Comparisons> FINDINGS: Fracture is present involving the base of the proximal phalanx of the great toe medially. Moderate soft tissue swelling. Hardware is present distal fibula. Moderate soft tissue swelling.
--- NOTE | 2023-11-15 18:39 | RAD REPORT ---
EXAM DESCRIPTION: US - Extremity Venous Uni Ltd - 11/15/2023 6:32 pm CLINICAL HISTORY: cellulitis, edema Leg swelling and edema. COMPARISON: <Comparisons> FINDINGS: Left lower extremity venous system was interrogated with Doppler technique. Normal flow, c ompressibility and augmentation was noted. There is no DVT present. IMPRESSION: No evidence of left lower extremity deep venous thrombosis.
--- NOTE | 2023-11-15 18:47 | RAD REPORT ---
EXAM DESCRIPTION: US - Lower Extremity Artery Uni Ltd - 11/15/2023 6:32 pm CLINICAL HISTORY: cellulitis, edema COMPARISON: <Comparisons> FINDINGS: Left lower extremity arterial Doppler was performed. Triphasic waveforms are seen througho ut left lower extremity arterial system. There is no evidence of a high-grade stenosis or occlusion. IMPRESSION: Negative study.
[2023-11-15] MEDS ORDERED: IPRATROPIUM BROM 0.5MG/2.5ML ONE (19:00)
[2023-11-15] MEDS ORDERED: ALBUTEROL 2.5 MG/3 ML NEB SOL ONE (19:00)
[2023-11-15] MEDS: ALBUTEROL 2.5 MG/3 ML NEB SOL NEB SCH (19:08)
[2023-11-15] MEDS: IPRATROPIUM BROM 0.5MG/2.5ML NEB SCH (19:08)
[2023-11-15 19:34] VITALS: BMI 34.7
[2023-11-15] MEDS ORDERED: ENOXAPARIN 40 MG/0.4 ML SQ ONE (22:17)
[2023-11-15] MEDS ORDERED: ATORVASTATIN 40 MG TAB ONE (22:17)
[2023-11-15] MEDS ORDERED: NA CHLORIDE 0.9% 1,000 ML ONE (22:18)
[2023-11-15] MEDS: NA CHLORIDE 0.9% 1,000 ML IV SCH (22:50)
[2023-11-15] MEDS: INSULIN REGULAR (HUMAN) 100 UNIT/ML SQ SCH (22:50)
[2023-11-15] MEDS: ATORVASTATIN 40 MG TAB PO SCH (22:50)
[2023-11-15] MEDS: ENOXAPARIN 40 MG/0.4 ML SQ SCH (22:50)
[2023-11-16] MEDS ORDERED: ALBUTEROL 2.5 MG/3 ML NEB SOL ONE ×2 (01:22→08:07)
[2023-11-16] MEDS ORDERED: IPRATROPIUM BROM 0.5MG/2.5ML ONE ×2 (01:22→08:07)
[2023-11-16] MEDS: VANCOMYCIN 2 GM in NA CHLORIDE 0.9% 500 ML IVPB SCH ×2 (04:00→15:56)
[2023-11-16] MEDS ORDERED: VANCOMYCIN 1 GM/VIAL ONE (04:21)
[2023-11-16] MEDS ORDERED: NA CHLORIDE 0.9% 500 ML ONE (04:21)
[2023-11-16] MEDS ORDERED: INSULIN REGULAR (HUMAN) 100 UNIT/ML ONE (09:35)
[2023-11-16] MEDS ORDERED: ENOXAPARIN 40 MG/0.4 ML SQ ONE (09:42)
--- NOTE | 2023-11-16 13:00 | P.PN ---
Subjective Date of Service: 11/16/23 Chief Complaint: cellulitis/wound to left lower ext Pt is resting comfortably in a wheel chair when I saw him. No DVT on left leg. Pt is waiting for Gen surgery eval. No other complaints. Review of Systems Eyes: Unremarkable ENT: Unremarkable Respiratory: Unremarkable Cardiovascular: Unremarkable Gastrointestinal: Unremarkable Genitourinary: Unremarkable Musculoskeletal: Unremarkable Integumentary: Lesions Neurological: Unremarkable Lymphatics: Unremarkable Physical Examination - Vital Signs Temperature: 97.8 F Blood Pressure: 144/97 Pulse: 86 Respirations: 18 Pulse Ox (%): 99 - Physical Exam General: Alert, In no apparent distress, Oriented x3 HEENT: Atraumatic, Normocephalic, PERRLA Neck: Supple, 2+ carotid pulse no bruit, JVD not distended Respiratory: Clear to auscultation bilaterally, Normal air movement Cardiovascular: No edema, Normal pulses, Regular rate/rhythm, Normal S1 S2 Capillary refill: <2 Seconds Gastrointestinal: Normal bowel sounds, Soft and benign, Non-distended Musculoskeletal: No clubbing, No swelling, No contractures Integumentary: No rashes, Skin breakdown, Tenderness/swelling Neurological: Normal speech, Normal strength at 5/5 x4 extr, Normal tone, Sensation intact Lymphatics: No axilla or inguinal lymphadenopathy - Studies Laboratory Data (last 24 hrs) 11/15/23 11/15/23 12:44 12:44 WBC 9.50 Hgb 17.7 Hct 52.4 H Plt Count 233 Sodium 135 L Potassium 4.2 BUN 16 Creatinine 0.83 Glucose 153 H Assessment And Plan - Plan Left leg cellulitis: Will continue iv vanc and prn pain med. Consulted Gen surgeon. F/u wound cx. X-ray of the foot shows fracture of the proximal phalanx of the left great toe. Left leg edema: Doppler ultrasound is negative for DVT. The swelling is due to cellulitis. Will continue iv vanc. Htn: Continue home med HLD: Statin DM II: Continue accuchek, SSI and ADA diet Tobacco abuse: Pt was advised to quit smoking. Will give nicotine Morbid Obesity: Pt was advised to lose weight. DVT ppx: heparin Code: full
--- NOTE | 2023-11-16 13:22 | P.CNS ---
Date of Consult: 11/16/23 PC: I was asked to see this 48-year-old male in regards to a traumatic injury to his left lower leg. HPC: Patient apparently was at work, got his leg caught between a wheel fender and a wall at work. Sustained considerable abrasion to the medial aspect of his left great toe bilateral great toe, as well as a semicrush injury to his left lower leg. He presents now with pain and swelling and discomfort. PSHx: Patient has had a previous fracture of his left lower leg with a set of plates and screws, previous amputation of toe right foot PMHx: Borderline diabetes Social Hx: Allergic to penicillin Sys R: States he is otherwise been in good health. No cough, wheeze, shortness of breath. No chest pain or palpitations. Denies any urinary complaints O/E: Awake alert vital signs are stable HEENT: Not jaundiced Chest: Chest movement equal bilaterally Abd: Negative [place]: On inspection of his left foot, has cellulitis from 2 handsbreadth above the ankle down towards the toes themselves. Appears to mostly be on the lateral side. On the medial aspect of the great toe and metatarsal there is a almost full-thickness skin abrasion. The lines have not fully demarcated yet. Also has some evidence of old blood under his toenails. The area appears to be mostly edematous. Appears to have good vascular refill. Dopplers and venous studies of the left lower leg do not show any acute process at this time. Clinically does not appear to have any compartment syndrome Data: Arterial and venous studies are negative Impression: Blunt force trauma injury to left leg and great toe Plan: We will treat the cellulitis, with antibiotics. The foot will be elevated. He will cleanse it with soap and water. Will use Vashe and a dressing to keep it clean. Will reassess in the a.m.
[2023-11-16 14:49] LABS: Absolute Eosinophils 0.2 K/uL (0-0.5); Absolute Monocytes 0.5 K/uL (0.1-1.3); Absolute Neutrophil 6.6 K/uL (1.8-8.0); Basophils % 0.6 % (0-1.3); Hematocrit 51.4 % (39.6-49.0); Hemoglobin 17.1 g/dL (13.6-17.9); Lymphocytes % 11.9 % (15.3-44.8); MCHC 33.3 g/dL (32.0-36.0); MCV 93.2 fL (80-100); MPV 7.6 fL (7.6-11.3); Monocytes % 6.5 % (3.3-12.3); Platelets 224 thou/uL (152-406); RBC Red Blood Cell Count 5.51 M/uL (4.33-5.43); Red Cell Distribution Width 14.9 % (12.1-15.2)
[2023-11-16 15:11] LABS: Albumin 3.2 g/dL (3.4-5.0); Albumin/Globulin Ratio 0.8 (1.1-1.8); Anion Gap 6.1 mEq/L (5.0-15.0); Bilirubin Total 2.2 mg/dL (0.2-1.0); Globulin 3.8 g/dL (2.3-3.5); Magnesium 1.9 mg/dL (1.6-2.4); Phosphorus 3.7 mg/dL (2.5-4.9); Potassium 5.1 mEq/L (3.5-5.1)
--- NOTE | 2023-11-16 15:31 | P.PN ---
Subjective Date of Service: 11/16/23 Chief Complaint: cellulitis/wound to left lower ext Subjective: No C/O voiced, Improving <Bridgette Rocha - Last Filed: 11/16/23 15:28> Date of Service: 11/16/23 <Alida Hagen Jacquelyn - Last Filed: 11/16/23 21:52> Review of Systems 10-point ROS is otherwise unremarkable Integumentary: As per HPI <Bridgette Rocha - Last Filed: 11/16/23 15:28> Physical Examination - Vital Signs Temperature: 96.7 F Blood Pressure: 158/97 Pulse: 83 Respirations: 20 Pulse Ox (%): 97 - Physical Exam General: Alert, In no apparent distress, Oriented x3 HEENT: Atraumatic, Normocephalic Neck: Supple Respiratory: Normal air movement, Expiratory wheezes Cardiovascular: Regular rate/rhythm Capillary refill: <2 Seconds Gastrointestinal: Soft and benign Musculoskeletal: No clubbing Integumentary: Other (cellulitis of left lateral foot, erythema to left lower leg with full thickness abrasions to medial foot and metatarsal area) Neurological: Normal speech, Normal tone, Normal affect Lymphatics: No axilla or inguinal lymphadenopathy External genitalia: Deferred Rectal: Deferred <Bridgette Rocha - Last Filed: 11/16/23 15:28> Assessment And Plan - Plan Cellulitis: r/o Osteo US venous and arterial left lower ext CT left foot Blood cultures Vancomycin Consult Dr. Burgess (done) 11/15 Dr. Burgess following - wound care as directed DM: FSBS q6h with SSI coverage HTN: continue home meds monitor and trend Atorvastatin 40mg po q hs Tobacco abuse: recommend cessation VRE prophylaxis Lovenox <Bridgette Rocha - Last Filed: 11/16/23 15:28> - Plan Pt seen and examined. I agree with the note by the PSYCHIATRIC SOCIAL WORKER SUPERVISOR. Will continue iv vanc. Doppler ultrasound is negative for DVT. Continue wound care. Waiting for Gen surgeon eval. <Ольга Hagenlucille Valladares - Last Filed: 11/16/23 21:52>
[2023-11-16] MEDS: INSULIN REGULAR (HUMAN) 100 UNIT/ML SQ SCH (16:30)
[2023-11-16 20:50] LABS: Phosphorus 3.4 mg/dL (2.5-4.9)
[2023-11-16 20:53] LABS: Magnesium 1.7 mg/dL (1.6-2.4)
[2023-11-16] MEDS: ACETAMINOPHEN 325 MG TABLET PO PRN (21:30)
[2023-11-17 08:29] LABS: Anion Gap 7.2 mEq/L (5.0-15.0); Potassium 4.2 mEq/L (3.5-5.1)
[2023-11-17] MEDS: MAGNESIUM SULFATE 1 gm IVPB 1 GM/100 ML BAG IV ONE (09:02)
--- NOTE | 2023-11-17 13:43 | P.DS ---
Admission Date: 11/15/23 Discharge Date: 11/17/23 Reason for Admission: cellulitis/wound to left lower ext Consultations: Dr. Burgess Brief History of Present Illness: Mr. Diez is a 48-year-old with a past medical history of hypertension, hyperlipidemia, diabetes, and tobacco abuse. While at work on Monday, 6 days ago, he caught his left foot between a forklift and trailer. He originally went to the [facility] and had imaging. His left lower extremity has continued to swell with increasing redness since that time. He states he was recently diagnosed with diabetes, but is a 2 pack/day smoker and 1-1/2 years ago had an amputation of his right second toe secondary to osteomyelitis. CBC and Chem-7 performed in the emergency room were basically unremarkable. We will admit him for further imaging/workup and consult with Dr. Burgess. Hospital Course: Okay to DC IV and DC home Follow-up with primary care provider in 1 to 2 weeks, will need to follow vancomycin trough Follow-up with Dr. Burgess in 1 to 2-weeks Please call the inpatient unit for any questions or concerns regarding hospital stay Return to the ER for worsening symptoms Status post accident at work to left lower extremity, compartment syndrome ruled out, no surgical intervention necessary at this time. Erythema and edema stable. Patient denies fever, chills, or tremor. Mr. Diez will need IV vancomycin for 2 weeks, wound care and elevation of the left lower extremity, and strict glucose control. Arrangements should be made to follow-up with Dr. Burgess in 2 weeks. Recommend tobacco cessation <Bridgette Rocha - Last Filed: 11/17/23 13:37> Admission Date: 11/15/23 Discharge Date: 11/17/23 Hospital Course: Pt seen and examined. I agree with the note by the SENIOR NET APPLICATION DEVELOPER. Will dc pt with iv vanc for 2 weeks. Follow up with Dr. Burgess in clinic Ok to discharge pt. <Alida Hagen - Last Filed: 11/17/23 14:06> Disposition: DC HOME/HOME HEALTH CARE Discharge Condition: GOOD Vital Signs/Physical Exam: Temp Pulse Resp BP Pulse Ox 96.9 F 88 21 H 150/92 H 98 11/17/23 08:00 11/17/23 08:00 11/17/23 08:00 11/17/23 08:00 11/17/23 08:00 General: Alert, In no apparent distress, Oriented x3 HEENT: Atraumatic, Normocephalic Neck: Supple Respiratory: Normal air movement Cardiovascular: No edema, Normal pulses, Regular rate/rhythm Capillary refill: <2 Seconds Gastrointestinal: Soft and benign Musculoskeletal: Other (elevated in clean/dry dressing) Integumentary: Other (near full thickness abrations to medial foot and plantar metatarsal area, lateral erythema and warmth, no vessel occlusions. ) Neurological: Normal speech, Normal tone, Normal affect Lymphatics: No axilla or inguinal lymphadenopathy External genitalia: Deferred Rectal: Deferred Laboratory Data at Discharge: WBC 8.30 thou/uL (4.3-10.9) 11/16/23 14:40 Hgb 17.1 g/dL (13.6-17.9) 11/16/23 14:40 Hct 51.4 % (39.6-49.0) H 11/16/23 14:40 Plt Count 224 thou/uL (152-406) 11/16/23 14:40 Sodium 138 mEq/L (136-145) 11/17/23 03:07 Potassium 4.2 mEq/L (3.5-5.1) D 11/17/23 03:07 BUN 15 mg/dL (7-18) 11/17/23 03:07 Creatinine 0.95 mg/dL (0.70-1.30) 11/17/23 03:07 Glucose 116 mg/dL (74-106) H 11/17/23 03:07 Phosphorus 3.4 mg/dL (2.5-4.9) 11/16/23 20:18 Magnesium 1.7 mg/dL (1.6-2.4) 11/16/23 20:18 Total Bilirubin 2.2 mg/dL (0.2-1.0) H 11/16/23 14:40 AST 13 U/L (15-37) L 11/16/23 14:40 ALT 23 U/L (16-61) 11/16/23 14:40 Alkaline Phosphatase 83 U/L (45-117) 11/16/23 14:40 Triglycerides 71 mg/dL (<150) 11/16/23 14:40 Cholesterol 93 mg/dL (<200) 11/16/23 14:40 HDL Cholesterol 32 mg/dL (40-60) L 11/16/23 14:40 Cholesterol/HDL Ratio 2.91 11/16/23 14:40 <Rocha,Bridgette Tom - Last Filed: 11/17/23 13:37> Vital Signs/Physical Exam: Temp Pulse Resp BP Pulse Ox 96.9 F 88 21 H 150/92 H 98 11/17/23 08:00 11/17/23 08:00 11/17/23 08:00 11/17/23 08:00 11/17/23 08:00 Laboratory Data at Discharge: WBC 8.30 thou/uL (4.3-10.9) 11/16/23 14:40 Hgb 17.1 g/dL (13.6-17.9) 11/16/23 14:40 Hct 51.4 % (39.6-49.0) H 11/16/23 14:40 Plt Count 224 thou/uL (152-406) 11/16/23 14:40 Sodium 138 mEq/L (136-145) 11/17/23 03:07 Potassium 4.2 mEq/L (3.5-5.1) D 11/17/23 03:07 BUN 15 mg/dL (7-18) 11/17/23 03:07 Creatinine 0.95 mg/dL (0.70-1.30) 11/17/23 03:07 Glucose 116 mg/dL (74-106) H 11/17/23 03:07 Phosphorus 3.4 mg/dL (2.5-4.9) 11/16/23 20:18 Magnesium 1.7 mg/dL (1.6-2.4) 11/16/23 20:18 Total Bilirubin 2.2 mg/dL (0.2-1.0) H 11/16/23 14:40 AST 13 U/L (15-37) L 11/16/23 14:40 ALT 23 U/L (16-61) 11/16/23 14:40 Alkaline Phosphatase 83 U/L (45-117) 11/16/23 14:40 Triglycerides 71 mg/dL (<150) 11/16/23 14:40 Cholesterol 93 mg/dL (<200) 11/16/23 14:40 HDL Cholesterol 32 mg/dL (40-60) L 11/16/23 14:40 Cholesterol/HDL Ratio 2.91 11/16/23 14:40 <Alida Hagen - Last Filed: 11/17/23 14:06> Diet: ADA <Bridgette Rocha - Last Filed: 11/17/23 13:37> <Alida Hagen - Last Filed: 11/17/23 14:06> Home Medications: Losartan Potassium 50 mg PO DAILY 05/25/22 Fluticasone/Salmeterol [Advair 250-50 Diskus] 1 puff IH DAILY 11/16/23 Metformin ER [Glucophage ER*] 11/16/23 Atorvastatin Calcium [Lipitor] 40 mg PO BEDTIME #90 tab 11/17/23 Mupirocin Calcium [Bactroban Nasal*] 1 appl JULIUS BID #50 udtube 11/17/23 Tramadol HCl 100 mg PO Q6H PRN #20 tab 11/17/23 New Medications: Mupirocin Calcium [Bactroban Nasal*] 1 appl JULIUS BID #50 udtube Atorvastatin Calcium [Lipitor] 40 mg PO BEDTIME #90 tab Tramadol HCl 100 mg PO Q6H PRN #20 tab PRN Reason: Pain Scale 8-10 (Severe) Physician Discharge Instructions: Okay to DC IV and DC home Follow-up with primary care provider in 1 to 2 weeks, will need to follow vancomycin trough Follow-up with Dr. Burgess in 1 to 2-weeks Please call the inpatient unit for any questions or concerns regarding hospital stay Return to the ER for worsening symptoms Status post accident at work to left lower extremity, compartment syndrome ruled out, no surgical intervention necessary at this time. Erythema and edema stable. Patient denies fever, chills, or tremor. Mr. Diez will need IV vancomycin for 2 weeks, wound care and elevation of the left lower extremity, and strict glucose control. Arrangements should be made to follow-up with Dr. Burgess in 2 weeks. Recommend tobacco cessation [facility] [employer] Broker Call Beth Dixon RN at [phone] for questions or concerns after discharge. Expect a call within 1-2 business days of discharge. Alternate: Adriane Rico RN at [phone] Followup: Josue Trevino MD [Primary Care Provider] - Tenzin Burgess MD [ACTIVE - CAN ADMIT] -
--- NOTE | 2023-11-17 15:18 | RAD REPORT ---
EXAM DESCRIPTION: RAD - Chest Single View - 11/17/2023 3:08 pm CLINICAL HISTORY: picc placement confirmation COMPARISON: Chest Single View dated 07/29/2023; Chest Single View dated 02/16/2022 FINDINGS: Lines: Right subclavian approach PICC with tip overlying the mid SVC . Lungs: Some interstitial prominence is again noted. Pleural: No significant pleural effusions or pneumothorax. Cardiac: Cardiomegaly. Mediastinum: Within normal limits. Bones: No acute fractures. Other: None IMPRESSION: PICC in satisfactory position overlying the mid SVC. Pulmonary vascular congestion suspe cted.
--- NOTE | 2023-11-17 17:35 | P.PN ---
Date of Service: 11/17/23 Brief History of Present Illness: Mr. Diez is a 48-year-old with a past medical history of hypertension, hype rlipidemia, diabetes, and tobacco abuse. While at work on Monday, 6 days ago, he caught his left foot between a forklift and trailer. He originally went to the [facility] and had imaging. His left lower extremity has continued to swell with increasing redness since that time. He states he was recently diagnosed with diabetes, but is a 2 pack/day smoker and 1-1/2 years ago had an amputation of his right second toe secondary to osteomyelitis. CBC and Chem-7 performed in the emergency room were basically unremarkable. We will admit him for further imaging/workup and consult with Dr. Burgess. Hospital Course: Okay to DC IV and DC home Follow-up with primary care provider in 1 to 2 weeks, will need to follow vancomycin trough Follow-up with Dr. Burgess in 1 to 2-weeks Please call the inpatient unit for any questions or concerns regarding hospital stay Return to the ER for worsening symptoms Status post accident at work to left lower extremity, compartment syndrome ruled out, no surgical intervention necessary at this time. Erythema and edema stable. Patient denies fever, chills, or tremor. Mr. Diez will need IV vancomycin for 2 weeks, wound care and elevation of the left lower extremity, and strict glucose control. Arrangements should be made to follow-up with Dr. Burgess in 2 weeks. Recommend tobacco cessation Temp Pulse Resp BP Pulse Ox 96.9 F 88 21 H 150/92 H 98 11/17/23 08:00 11/17/23 08:00 11/17/23 08:00 11/17/23 08:00 11/17/23 08:00 General: Alert, In no apparent distress, Oriented x3 HEENT: Atraumatic, Normocephalic Neck: Supple Respiratory: Normal air movement Cardiovascular: No edema, Normal pulses, Regular rate/rhythm Capillary refill: <2 Seconds Gastrointestinal: Soft and benign Musculoskeletal: Other (elevated in clean/dry dressing) Integumentary: Other (near full thickness abrations to medial foot and plantar metatarsal area, lateral erythema and warmth, no vessel occlusions.) Neurological: Normal speech, Normal tone, Normal affect Lymphatics: No axilla or inguinal lymphadenopathy External genitalia: Deferred Rectal: Deferred Laboratory Data at Discharge: [facility] [employer] Crown Pouncer Call Beth Dixon, RN at [phone] for questions or concerns after discharge. Expect a call within 1-2 business days of discharge. Alternate: Adriane Rico RN at [phone] Followup: Josue Trevino MD [Primary Care Provider] - Tenzin Burgess MD [ACTIVE - CAN ADMIT] - Unable to set up IV abx today, will need follow up on weekend. Pt will stay inpatient for IV abx until set up complete, probably Monday. <Bridgette Rocha - Last Filed: 11/17/23 17:35> Pt seen and examined. I agree with the note by the INTELLECTUAL PROPERTY LEGAL ASSISTANT. Will dc pt once we set up iv abx infusion at home. <Alida Hagen - Last Filed: 11/18/23 22:38>
[2023-11-17] MEDS: Mupirocin NASAL 2 APPL/1 GM TUBE NAS SCH (20:37)
--- NOTE | 2023-11-18 08:20 | P.PN ---
Subjective Date of Service: 11/18/23 Chief Complaint: cellulitis/wound to left lower ext Subjective: Improving (awaiting outpt IV therapy set up) <Bridegtte Rocha - Last Filed: 11/18/23 08:17> Date of Service: 11/18/23 <Alida Hagen - Last Filed: 11/18/23 11:57> Review of Systems 10-point ROS is otherwise unremarkable Integumentary: As per HPI <Bridgette Rocha - Last Filed: 11/18/23 08:17> Physical Examination - Vital Signs Temperature: 97.0 F Blood Pressure: 154/91 Pulse: 90 Respirations: 16 Pulse Ox (%): 97 - Physical Exam General: Alert, In no apparent distress, Oriented x3 HEENT: Atraumatic, Normocephalic Neck: Supple Respiratory: Normal air movement Cardiovascular: Normal pulses Capillary refill: <2 Seconds Gastrointestinal: Soft and benign Musculoskeletal: Other (decreased but present edema to left lower leg/foot) Integumentary: Erythema, Other (over lower lateral left leg/foot, diminished but present) Neurological: Normal speech, Normal tone, Normal affect Lymphatics: No axilla or inguinal lymphadenopathy External genitalia: Deferred Rectal: Deferred <Bridgette Rocha - Last Filed: 11/18/23 08:17> Assessment And Plan - Plan Cellulitis: r/o Osteo US venous and arterial left lower ext CT left foot Blood cultures Vancomycin Consult Dr. Burgess (done) 11/15 Dr. Burgess following - wound care as directed 11/16 continues with Vancomycin, no complaints, left lower leg elevated 11/17 pending Vanc level at 1500, pending IV therapy set up completion DM: FSBS q6h with SSI coverage HTN: continue home meds monitor and trend Atorvastatin 40mg po q hs Tobacco abuse: recommend cessation VRE prophylaxis Lovenox <Bridgette Rochalen - Last Filed: 11/18/23 08:17> - Plan Pt seen and examined. I agree with the note by the RATE QUOTING OPERATOR. Pt is a waiting for the completion of home iv abx infusion set up <Alida Hagen - Last Filed: 11/18/23 11:57>
--- NOTE | 2023-11-18 20:42 | P.PN ---
Date of Service: 11/18/23 S: Patient has no specific complaints, thinks that the swelling in his foot is going down. O: Foot seems to be improving slowly A: Stable from a surgical point of view, reminded patient that he does have a fracture of his metatarsal and to do nonweightbearing with it. P: Patient will most likely be discharged on IV antibiotics. He has to find a source for outpatient therapy. Unfortunately I do not qualify for that. He is more than welcome to follow-up with me in my wound care clinic.
--- NOTE | 2023-11-19 09:09 | P.PN ---
Date of Service: 11/19/23 Subjective Date of Service: 11/19/23 Chief Complaint: cellulitis/wound to left lower ext Subjective: Improving (awaiting outpt IV therapy set up) Review of Systems 10-point ROS is otherwise unremarkable Integumentary: As per HPI Physical Examination - Vital Signs reviewed - Physical Exam General: Alert, In no apparent distress, Oriented x3 HEENT: Atraumatic, Normocephalic Neck: Supple Respiratory: Normal air movement Cardiovascular: Normal pulses Capillary refill: <2 Seconds Gastrointestinal: Soft and benign Musculoskeletal: Other (decreased but present edema to left lower leg/foot) Integumentary: Erythema, Other (over lower lateral left leg/foot, improved but remains) Neurological: Normal speech, Normal tone, Normal affect Lymphatics: No axilla or inguinal lymphadenopathy External genitalia: Deferred Rectal: Deferred Assessment And Plan - Plan Cellulitis: r/o Osteo US venous and arterial left lower ext CT left foot Blood cultures Vancomycin Consult Dr. Burgess (done) 11/15 Dr. Burgess following - wound care as directed 11/16 continues with Vancomycin, no complaints, left lower leg elevated 11/17 pending Vanc level at 1500, pending IV therapy set up completion 11/18 pending iv therapy set up/f/u DM: FSBS q6h with SSI coverage HTN: continue home meds monitor and trend Atorvastatin 40mg po q hs Tobacco abuse: recommend cessation VRE prophylaxis Lovenox <Bridgette Rocha - Last Filed: 11/19/23 09:07> Pt seen and examined. I agree with the note by the PORT SURVEYOR. Pt is a waiting for the completion of home iv abx infusion set up The swelling is improving. <Alida Hagen - Last Filed: 11/19/23 12:49>
[2023-11-19 10:47] LABS: Absolute Basophils 0.1 K/uL (0-0.5); Absolute Eosinophils 0.1 K/uL (0-0.5); Absolute Lymphocytes (CBC) 0.9 K/uL (0.7-4.9); Absolute Monocytes 0.6 K/uL (0.1-1.3); Absolute Neutrophil 5.2 K/uL (1.8-8.0); Basophils % 0.9 % (0-1.3); Hematocrit 44.7 % (39.6-49.0); Lymphocytes % 12.7 % (15.3-44.8); MCHC 33.6 g/dL (32.0-36.0); MCV 92.3 fL (80-100); MPV 7.6 fL (7.6-11.3); Monocytes % 8.9 % (3.3-12.3); Neutrophils % 75.5 % (41.7-73.7); Platelets 175 thou/uL (152-406); RBC Red Blood Cell Count 4.84 M/uL (4.33-5.43); Red Cell Distribution Width 14.7 % (12.1-15.2)
[2023-11-19 11:02] LABS: Anion Gap 4.7 mEq/L (5.0-15.0); Potassium 3.7 mEq/L (3.5-5.1)
[2023-11-19] MEDS: METOPROLOL XL 25 MG TAB PO SCH (17:58)
--- NOTE | 2023-11-20 09:29 | P.PN ---
Subjective Date of Service: 11/20/23 Chief Complaint: cellulitis/wound to left lower ext Admitted with cellulitis, followed by surgery Dr. Burgess, on IV vancomycin, pending cultures, PT eval for nonweightbearing left lower extremity will need to follow-up with orthopedic after discharge Pending authorization outpatient IV antibiotics - Physical Exam General: Alert, In no apparent distress, Oriented x3 HEENT: Atraumatic, Normocephalic Neck: Supple Respiratory: Normal air movement Cardiovascular: Normal pulses Capillary refill: <2 Seconds Gastrointestinal: Soft and benign Musculoskeletal: Other (decreased but present edema to left lower leg/foot) Integumentary: Erythema, Other (over lower lateral left leg/foot, improved but remains) Neurological: Normal speech, Normal tone, Normal affect Lymphatics: No axilla or inguinal lymphadenopathy External genitalia: Deferred Review of Systems Per HPI Physical Examination - Vital Signs Temperature: 97.1 F Blood Pressure: 158/89 Pulse: 85 Respirations: 20 Pulse Ox (%): 98 Assessment And Plan - Plan Assessment plan Cellulitis: Nondisplaced fracture medial base proximal phalanx of the great toe. Keep nonweightbearing r/o Osteo plan to discharge on IV antibiotics US venous and arterial left lower ext-IMPRESSION: No evidence of left lower extremity deep venous thrombosis. CT left foot IMPRESSION: Nondisplaced fracture medial base proximal phalanx of the great toe. Blood cultures Blood cultures no growth in [address] Burgess (done) 11/15 Dr. Burgess following - wound care as directed 11/16 continues with Vancomycin, no complaints, left lower leg elevated 11/17 pending Vanc level at 1500, pending IV therapy set up completion 11/18 pending iv therapy set up/f/u DM: FSBS q6h with SSI coverage Chest x-ray IMPRESSION: PICC in satisfactory position overlying the mid SVC. Pulmonary vascular congestion suspected. PT eval for nonweightbearing Wound care eval-wound cultures reordered 11/19 HTN: continue home meds monitor and trend Atorvastatin 40mg po q hs Tobacco abuse: recommend cessation VRE prophylaxis Lovenox Discharge Plan: Home Critical Care: No Time Spent Managing PTS Care (In Minutes): 35
--- NOTE | 2023-11-20 13:21 | P.DS ---
Admission Date: 11/15/23 Discharge Date: 11/22/23 Disposition: [place] HOME/HOME HEALTH CARE Discharge Condition: GOOD Reason for Admission: cellulitis/wound to left lower ext Brief History of Present Illness: Mr. Diez is a 48-year-old with a past medical history of hypertension, hyperlipidemia, diabetes, and tobacco abuse. While at work on Monday, 6 days ago, he caught his left foot between a forklift and trailer. He originally went to the [facility] and had imaging. His left lower extremity has continued to swell with increasing redness since that time. He states he was recently diagnosed with diabetes, but is a 2 pack/day smoker and 1-1/2 years ago had an amputation of his right second toe secondary to osteomyelitis. CBC and Chem-7 performed in the emergency room were basically unremarkable. We will admit him for further imaging/workup and consult with Dr. Burgess. - Physical Exam General: Alert, In no apparent distress, Oriented x3, Obese HEENT: Atraumatic, Normocephalic Neck: Supple Respiratory: Expiratory wheezes Cardiovascular: No edema, Normal S1 S2 Capillary refill: <2 Seconds Gastrointestinal: Soft and benign Musculoskeletal: No clubbing Integumentary: Other (left knee with mild edema, lower ext with erythema, lateral foot with severe erythema while the medial aspect of foot with pallor, mod/severe edema of entire foot. avulsion of skin over the medial aspect of the metatarsal with all intriginous areas crusted. ) Neurological: Normal speech, Normal tone, Normal affect Hospital Course: Mr. Diez is a 48-year-old with a past medical history of hypertension, hyperlipidemia, diabetes, and tobacco abuse. While at work on Monday, 6 days ago, he caught his left foot between a forklift and trailer. He originally went to the [facility] and had imaging. His left lower extremity has continued to swell with increasing redness since that time. He states he was recently diagnosed with diabetes, but is a 2 pack/day smoker and 1-1/2 years ago had an amputation of his right second toe secondary to osteomyelitis. He was admitted for further imaging/workup and consult with Dr. Burgess. Treated with IV antibiotics, vancomycin with PICC line placement prior to discharge. He will need 6 weeks of IV vacno, with trough after every 4th dose, weekly CBC, CMP, PCP to manage, patient will need to follow up with wound care clinic weekly to eval progression. DC home with [facility], follow up with surgery to eval wound care resolution. ASSESSMENT: Left foot cellulitis, discharged on IV antibiotics. follow-up with me in my wound care clinic.(Dr Burgess) Left foot injury on [employer]. fracture of his metatarsal and to do nonweightbearing with it.-Ambulate with crutches, follow-up with orthopedic after discharge Wound cultures ordered for the left lower extremity, blood cultures negative Discharge home on IV antibiotics, PCP/urgent care to manage labs contact [facility] (these facilities are often in-network for [employer]) to inquire about following for primary care. [facility], and scheduled a follow up appointment with Dr. Burgess on 11/29/23 at 1330 at the wound healing center. Notified her of [employer] comp as payor and faxed [employer] comp info sheet Darnell with [facility] (ph: [phone]) confirmed that she can accept for home health. Continue home medicines as previously prescribed GOAL: Clear understanding of disease process INSTRUCTIONS: Physician Discharge Instructions: -Follow-up with PCP in 1 to 2 weeks -Please call Dr. Whitaker at [phone] if any questions regarding hospital stay -Please call nursing station at [phone] if any nursing or medication questions -Return to the emergency room if symptoms worsen Diet: ADA, low sodium Activity: Fall precautions Vital Signs/Physical Exam: Temp Pulse Resp BP Pulse Ox 96.6 F L 81 20 133/87 97 11/20/23 12:00 11/20/23 12:00 11/20/23 12:00 11/20/23 12:00 11/20/23 12:00 Laboratory Data at Discharge: WBC 6.90 thou/uL (4.3-10.9) 11/19/23 10:30 Hgb 15.0 g/dL (13.6-17.9) 11/19/23 10:30 Hct 44.7 % (39.6-49.0) 11/19/23 10:30 Plt Count 175 thou/uL (152-406) 11/19/23 10:30 Sodium 138 mEq/L (136-145) 11/19/23 10:30 Potassium 3.7 mEq/L (3.5-5.1) 11/19/23 10:30 BUN 12 mg/dL (7-18) 11/19/23 10:30 Creatinine 0.80 mg/dL (0.70-1.30) 11/19/23 10:30 Glucose 182 mg/dL (74-106) H 11/19/23 10:30 Phosphorus 3.4 mg/dL (2.5-4.9) 11/16/23 20:18 Magnesium 1.7 mg/dL (1.6-2.4) 11/16/23 20:18 Total Bilirubin 2.2 mg/dL (0.2-1.0) H 11/16/23 14:40 AST 13 U/L (15-37) L 11/16/23 14:40 ALT 23 U/L (16-61) 11/16/23 14:40 Alkaline Phosphatase 83 U/L (45-117) 11/16/23 14:40 Triglycerides 71 mg/dL (<150) 11/16/23 14:40 Cholesterol 93 mg/dL (<200) 11/16/23 14:40 HDL Cholesterol 32 mg/dL (40-60) L 11/16/23 14:40 Cholesterol/HDL Ratio 2.91 11/16/23 14:40 Home Medications: Losartan Potassium 50 mg PO DAILY 05/25/22 Fluticasone/Salmeterol [Advair 250-50 Diskus] 1 puff IH DAILY 11/16/23 Metformin ER [Glucophage ER*] 11/16/23 Atorvastatin Calcium [Lipitor] 40 mg PO BEDTIME #90 tab 11/17/23 Mupirocin Calcium [Bactroban Nasal*] 1 appl JULIUS BID #50 udtube 11/17/23 Tramadol HCl 100 mg PO Q6H PRN #20 tab 11/17/23 New Medications: Mupirocin Calcium [Bactroban Nasal*] 1 appl JULIUS BID #50 udtube Atorvastatin Calcium [Lipitor] 40 mg PO BEDTIME #90 tab Tramadol HCl 100 mg PO Q6H PRN #20 tab PRN Reason: Pain Scale 8-10 (Severe) Physician Discharge Instructions: Okay to DC IV and DC home Follow-up with primary care provider in 1 to 2 weeks, will need to follow vancomycin trough Follow-up with Dr. Burgess in 1 to 2-weeks - appt at [facility] on 11/29/23 at 1:30pm Please call the inpatient unit for any questions or concerns regarding hospital stay Return to the ER for worsening symptoms Status post accident at work to left lower extremity, compartment syndrome ruled out, no surgical intervention necessary at this time. Erythema and edema stable. Patient denies fever, chills, or tremor. Arrangements should be made to follow-up with Dr. Burgess in 2 weeks. Recommend tobacco cessation [facility] Call Beth Dixon RN at [phone] for questions or concerns after discharge. Expect a call within 1-2 business days of discharge. Alternate: Adriane Rico RN at [phone], [place] [id number] P/ Kelly: [phone] F Mr. Diez is a 48-year-old with a past medical history of hypertension, hyperlipidemia, diabetes, and tobacco abuse. While at work on Monday, 6 days ago, he caught his left foot between a forklift and trailer. He originally went to the [facility] and had imaging. His left lower extremity has continued to swell with increasing redness since that time. He states he was recently diagnosed with diabetes, but is a 2 pack/day smoker and 1-1/2 years ago had an amputation of his right second toe secondary to osteomyelitis. He was admitted for further imaging/workup and consult with Dr. Burgess. ASSESSMENT: Left foot cellulitis, discharged on IV antibiotics. He is more than welcome to follow-up with me in my wound care clinic. Left foot injury on [employer]. fracture of his metatarsal and to do nonweightbearing with it.-Ambulate with crutches, follow-up with orthopedic after discharge Wound cultures ordered for the left lower extremity, blood cultures negative [facility], and scheduled a follow up appointment with Dr. Burgess on 11/29/23 at 7620 at the wound healing center. Notified her of workman's comp as payor and faxed workman's comp info sheet Darnell with [facility] (ph: [phone]) confirmed that she can accept for home health. Diet: ADA Followup: Josue Trevino MD [Primary Care Provider] - Bigg Pozo MD [ACTIVE - CAN ADMIT] - Tenzin Burgess MD [ACTIVE - CAN ADMIT] - Time spent managing pt's care (in minutes): 55
[2023-11-21 03:39] LABS: Absolute Basophils 0.1 K/uL (0-0.5); Absolute Eosinophils 0.2 K/uL (0-0.5); Absolute Lymphocytes (CBC) 1.4 K/uL (0.7-4.9); Absolute Monocytes 0.7 K/uL (0.1-1.3); Eosinophils % 2.2 % (0-4.4); Hemoglobin 14.5 g/dL (13.6-17.9); Lymphocytes % 19.2 % (15.3-44.8); MCH 31.6 pg (27.0-35.0); MCHC 34.4 g/dL (32.0-36.0); MCV 91.8 fL (80-100); MPV 7.6 fL (7.6-11.3); Monocytes % 9.4 % (3.3-12.3); Neutrophils % 68.2 % (41.7-73.7); Nucleated Red Blood Cells % 0.1 % (0-0); Platelets 207 thou/uL (152-406); RBC Red Blood Cell Count 4.58 M/uL (4.33-5.43); Red Cell Distribution Width 14.6 % (12.1-15.2)
[2023-11-21 03:57] LABS: Anion Gap 5.7 mEq/L (5.0-15.0); Potassium 3.7 mEq/L (3.5-5.1)
[2023-11-21] MEDS: POTASSIUM CL SA 10 MEQ TAB PO ONE ×2 (05:26→10:49)
[2023-11-21] MEDS ORDERED: ALBUTEROL 2.5 MG/3 ML NEB SOL NEB PRN (08:32)
[2023-11-21] MEDS ORDERED: IPRATROPIUM BROM 0.5MG/2.5ML NEB PRN (08:32)
[2023-11-21] MEDS: FUROSEMIDE 40 MG/4 ML VIAL IV ONE (18:26)
[2023-11-22 04:44] VITALS: TEMP 97.1
[2023-11-22 07:44] LABS: Absolute Basophils 0.1 K/uL (0-0.5); Absolute Eosinophils 0.2 K/uL (0-0.5); Absolute Lymphocytes (CBC) 1.1 K/uL (0.7-4.9); Absolute Monocytes 0.6 K/uL (0.1-1.3); Basophils % 0.9 % (0-1.3); Eosinophils % 2.5 % (0-4.4); Hematocrit 44.4 % (39.6-49.0); Hemoglobin 15.1 g/dL (13.6-17.9); Lymphocytes % 15.8 % (15.3-44.8); MCH 31.3 pg (27.0-35.0); MPV 7.5 fL (7.6-11.3); Monocytes % 8.7 % (3.3-12.3); Neutrophils % 72.1 % (41.7-73.7); Platelets 200 thou/uL (152-406); RBC Red Blood Cell Count 4.82 M/uL (4.33-5.43); Red Cell Distribution Width 14.5 % (12.1-15.2)
[2023-11-22 08:00] LABS: Anion Gap 5.7 mEq/L (5.0-15.0); Potassium 3.7 mEq/L (3.5-5.1)
[2023-11-22 08:07] VITALS: O2SAT 98
--- NOTE | 2023-11-22 08:20 | P.PN ---
Subjective Date of Service: 11/21/23 Chief Complaint: cellulitis/wound to left lower ext Admitted with cellulitis, followed by surgery Dr. Burgess, on IV vancomycin, pending cultures, PT eval for nonweightbearing left lower extremity will need to follow-up with orthopedic after discharge Pending authorization outpatient IV antibiotics will cont vanc BID x 6wks - Physical Exam General: Alert, In no apparent distress, Oriented x3 HEENT: Atraumatic, Normocephalic Neck: Supple Respiratory: Normal air movement Cardiovascular: Normal pulses Capillary refill: <2 Seconds Gastrointestinal: Soft and benign Musculoskeletal: Other (decreased but present edema to left lower leg/foot) Integumentary: Erythema, Other (over lower lateral left leg/foot, improved but remains) Neurological: Normal speech, Normal tone, Normal affect Lymphatics: No axilla or inguinal lymphadenopathy External genitalia: Deferred Review of Systems per HPI Physical Examination - Vital Signs Temperature: 97.1 F Blood Pressure: 146/78 Pulse: 80 Respirations: 18 Pulse Ox (%): 98 Assessment And Plan - Plan Assessment plan Cellulitis: Nondisplaced fracture medial base proximal phalanx of the great toe. Keep nonweightbearing r/o Osteo plan to discharge on IV antibiotics US venous and arterial left lower ext-IMPRESSION: No evidence of left lower e xtremity deep venous thrombosis. CT left foot IMPRESSION: Nondisplaced fracture medial base proximal phalanx of the great toe. Blood cultures Blood cultures no growth in [address] Burgess (done) 11/15 Dr. Burgess following - wound care as directed 11/16 continues with Vancomycin, no complaints, left lower leg elevated 11/17 pending Vanc level at 1500, pending IV therapy set up completion 11/18 pending iv therapy set up/f/u DM: FSBS q6h with SSI coverage Chest x-ray IMPRESSION: PICC in satisfactory position overlying the mid SVC. Pulmonary vascular congestion suspected. PT eval for nonweightbearing Wound care eval-wound cultures reordered 11/19 HTN: continue home meds monitor and trend Atorvastatin 40mg po q hs Tobacco abuse: recommend cessation VRE prophylaxis Lovenox Discharge Plan: Home Critical Care: No Time Spent Managing PTS Care (In Minutes): 35
[2023-11-22 08:47] VITALS: BP 149/95
== END 2023-11-22 11:55 | disposition home health service (06) | DRG 603 ==
LOC: ER 11:24 → ERHOLD 17:04 → 4TH 11-16 11:11
PROVIDERS: ADMIT Hospitalist; ATTEND Hospitalist
PROC: 02HV33Z Insertion of Infusion Device into Superior Vena Cava, Percutaneous Approach (ICD-10-PCS; principal; 2023-11-17)
DX: L03.116 Cellulitis of left lower limb (principal); I10 Essential (primary) hypertension; E78.5 Hyperlipidemia, unspecified; E11.9 Type 2 diabetes mellitus without complications; E66.01 Morbid (severe) obesity due to excess calories; S92.415A Nondisplaced fracture of proximal phalanx of left great toe, initial encounter for closed fracture; F17.210 Nicotine dependence, cigarettes, uncomplicated; Z88.0 Allergy status to penicillin; Z63.5 Disruption of family by separation and divorce; Z68.34 Body mass index [BMI] 34.0-34.9, adult; Z79.84 Long term (current) use of oral hypoglycemic drugs; Z28.310 Unvaccinated for COVID-19; Z89.421 Acquired absence of other right toe(s); Z79.899 Other long term (current) drug therapy
CPT/HCPCS: 36415; 71045; 73700; 80048; 80053; 80061; 80202; 82947; 83036; 83735; 84100; 85025; 87040; 87070; 87075; 87205; 93926; 93971; 94640; 96365; 96366; 97116; 97161; 97530; 99285; J1650; J1940; J3475; J7030; J7040; J7613; J7644